=== PATIENT | female | born 1960 | race Caucasian/White ===

== ENCOUNTER → 2018-07-15 10:57 | Outpatient (CLI) | payer OTHER, SELFPAY ==
[2018-07-15 11:27] LABS: Hemoglobin A1C% w Est Avg Glu 8.3 % (4.0-6.0)
[2018-07-15 11:49] LABS: Alanine Aminotransferase 48 IU/L (9-52); Albumin 4.5 g/dL (3.5-5.0); Albumin Globulin Ratio 1.5 (1.0-2.8); Alkaline Phosphatase 96 U/L (38-126); Aspartate Aminotransferase 38 IU/L (14-36); BUN Creatinine Ratio 28.3 (6-22); Bilirubin Total 0.5 mg/dL (0.2-1.3); Blood Urea Nitrogen 17 mg/dL (7-17); Calcium 9.3 mg/dL (8.4-10.2); Carbon Dioxide 26 mmol/L (22-32); Chloride 100 mmol/L (98-107); Cholesterol 206 mg/dL (140-199); Estimated Glomerular Filt Rate > 60.0 mL/min (>60); Glucose 291 mg/dL (70-100); HDL Cholesterol 48 mg/dL (40-60); HEMOLYSIS 17 (0-50); LDL Cholesterol Calculated 105 mg/dL (<100); Potassium 4.9 mmol/L (3.4-5.1); Sodium 139 mmol/L (137-145); Total Protein 7.5 g/dL (6.3-8.2); Triglycerides 264 mg/dL (35-150)
== END ==
PROVIDERS: Family Provider Internal Medicine; PCP Internal Medicine; Visit Provider Internal Medicine
DX: E11.9 Type 2 diabetes mellitus without complications (principal); G60.9 Hereditary and idiopathic neuropathy, unspecified; G62.9 Polyneuropathy, unspecified; R07.9 Chest pain, unspecified
CPT/HCPCS: 36415; 80053; 80061; 83036

== ENCOUNTER → 2019-03-17 11:40 | Outpatient (CLI) | payer OTHER, SELFPAY ==
[2019-03-17 12:16] LABS: Hemoglobin A1C% w Est Avg Glu 8.2 % (4.0-6.0)
[2019-03-17 12:20] LABS: BUN Creatinine Ratio 28.6 (6-22); Blood Urea Nitrogen 20 mg/dL (7-17); Calcium 9.1 mg/dL (8.4-10.2); Carbon Dioxide 29 mmol/L (22-32); Chloride 102 mmol/L (98-107); Estimated Glomerular Filt Rate > 60.0 mL/min (>60); Glucose 237 mg/dL (70-100); HEMOLYSIS < 15 (0-50); Potassium 5.2 mmol/L (3.4-5.1); Sodium 140 mmol/L (137-145)
== END ==
PROVIDERS: PCP Internal Medicine; Visit Provider Internal Medicine
DX: E11.9 Type 2 diabetes mellitus without complications (principal); I10 Essential (primary) hypertension
CPT/HCPCS: 36415; 80048; 83036

== ENCOUNTER → 2019-07-06 15:16 | Outpatient (CLI) | payer OTHER, SELFPAY ==
[2019-07-06 15:48] LABS: Hemoglobin A1C% w Est Avg Glu 8.1 % (4.0-6.0)
[2019-07-06 15:50] LABS: BUN Creatinine Ratio 22.9 (6-22); Blood Urea Nitrogen 16 mg/dL (7-17); Calcium 10.5 mg/dL (8.4-10.2); Carbon Dioxide 30 mmol/L (22-32); Chloride 101 mmol/L (98-107); Estimated Glomerular Filt Rate > 60.0 mL/min (>60); Glucose 166 mg/dL (70-100); HEMOLYSIS < 15 (0-50); Potassium 4.9 mmol/L (3.4-5.1); Sodium 142 mmol/L (137-145)
== END ==
PROVIDERS: PCP Internal Medicine; Referring Provider Internal Medicine; Visit Provider Internal Medicine
DX: E11.9 Type 2 diabetes mellitus without complications (principal); I10 Essential (primary) hypertension
CPT/HCPCS: 36415; 80048; 83036

== ENCOUNTER → 2019-10-26 08:41 | Outpatient (CLI) | payer OTHER, SELFPAY ==
[2019-10-26 09:39] LABS: Hemoglobin A1C% w Est Avg Glu 9.1 % (4.0-6.0)
[2019-10-26 09:42] LABS: Alanine Aminotransferase 26 IU/L (<35); Albumin 3.9 g/dL (3.5-5.0); Albumin Globulin Ratio 1.4 (1.0-2.8); Alkaline Phosphatase 69 U/L (38-126); Aspartate Aminotransferase 27 IU/L (14-36); BUN Creatinine Ratio 20.6 (6-22); Bilirubin Total 0.6 mg/dL (0.2-1.3); Blood Urea Nitrogen 13 mg/dL (7-17); Calcium 8.9 mg/dL (8.4-10.2); Carbon Dioxide 29 mmol/L (22-32); Chloride 101 mmol/L (98-107); Cholesterol 152 mg/dL (140-199); Estimated Glomerular Filt Rate > 60.0 mL/min (>60); Globulin 2.7 g/dL (1.7-4.1); Glucose 276 mg/dL (70-100); HDL Cholesterol 39 mg/dL (40-60); HEMOLYSIS < 15 (0-50); LDL Cholesterol Calculated 84 mg/dL (<100); Potassium 4.4 mmol/L (3.4-5.1); Sodium 138 mmol/L (137-145); Total Protein 6.6 g/dL (6.3-8.2); Triglycerides 144 mg/dL (35-150)
== END ==
PROVIDERS: PCP Internal Medicine; Referring Provider Internal Medicine; Visit Provider Internal Medicine
DX: E11.65 Type 2 diabetes mellitus with hyperglycemia (principal); G60.9 Hereditary and idiopathic neuropathy, unspecified; I10 Essential (primary) hypertension
CPT/HCPCS: 36415; 80053; 80061; 83036

== ENCOUNTER → 2020-04-08 10:56 | Outpatient (CLI) | payer OTHER, SELFPAY ==
[2020-04-08 11:27] LABS: COVID19 -Nasal RAPID Negative (Negative)
== END ==
PROVIDERS: PCP Internal Medicine; Visit Provider Registered Nurse Diabetes Educator
DX: J34.89 Other specified disorders of nose and nasal sinuses (principal); R05 Cough; Z11.8 Encounter for screening for other infectious and parasitic diseases
CPT/HCPCS: 87635

== ENCOUNTER → 2020-04-08 11:06 | Outpatient (CLI) | payer OTHER, SELFPAY ==
[2020-04-08 12:34] LABS: Hemoglobin A1C% w Est Avg Glu 7.6 % (4.0-6.0)
[2020-04-08 13:05] LABS: BUN Creatinine Ratio 24.3 (6-22); Blood Urea Nitrogen 17 mg/dL (7-17); Calcium 9.2 mg/dL (8.4-10.2); Carbon Dioxide 32 mmol/L (22-32); Chloride 99 mmol/L (98-107); Estimated Glomerular Filt Rate > 60.0 mL/min (>60); Glucose 203 mg/dL (70-100); HEMOLYSIS < 15 (0-50); Potassium 4.2 mmol/L (3.4-5.1); Sodium 138 mmol/L (137-145)
== END ==
PROVIDERS: PCP Internal Medicine; Referring Provider Internal Medicine; Visit Provider Internal Medicine
DX: E11.65 Type 2 diabetes mellitus with hyperglycemia (principal); I10 Essential (primary) hypertension; J34.89 Other specified disorders of nose and nasal sinuses; R05 Cough; Z11.8 Encounter for screening for other infectious and parasitic diseases
CPT/HCPCS: 36415; 80048; 83036; 87635

== ENCOUNTER → 2020-07-11 06:59 | Outpatient (CLI) | payer OTHER, SELFPAY ==
[2020-07-11 08:33] LABS: Hemoglobin A1C% w Est Avg Glu 7.8 % (4.0-6.0)
[2020-07-11 08:47] LABS: BUN Creatinine Ratio 25.4 (6-22); Blood Urea Nitrogen 16 mg/dL (7-17); Calcium 9.1 mg/dL (8.4-10.2); Carbon Dioxide 30 mmol/L (22-32); Chloride 104 mmol/L (98-107); Estimated Glomerular Filt Rate > 60.0 mL/min (>60); Glucose 235 mg/dL (70-100); HEMOLYSIS < 15 (0-50); Potassium 4.8 mmol/L (3.4-5.1); Sodium 140 mmol/L (137-145)
== END ==
PROVIDERS: PCP Internal Medicine; Referring Provider Internal Medicine; Visit Provider Internal Medicine
DX: E11.65 Type 2 diabetes mellitus with hyperglycemia (principal); I10 Essential (primary) hypertension
CPT/HCPCS: 36415; 80048; 83036

== ENCOUNTER → 2020-10-02 06:52 | Outpatient (CLI) | payer OTHER, SELFPAY ==
[2020-10-02 08:10] LABS: BUN Creatinine Ratio 15.4 (6-22); Blood Urea Nitrogen 12 mg/dL (7-17); Carbon Dioxide 29 mmol/L (22-32); Chloride 104 mmol/L (98-107); Estimated Glomerular Filt Rate > 60.0 mL/min (>60); Glucose 122 mg/dL (70-100); HEMOLYSIS < 15 (0-50); Hemoglobin A1C% w Est Avg Glu 5.8 % (4.0-6.0); Sodium 141 mmol/L (137-145)
== END ==
PROVIDERS: PCP Internal Medicine; Referring Provider Internal Medicine; Visit Provider Internal Medicine
DX: E11.65 Type 2 diabetes mellitus with hyperglycemia (principal); I10 Essential (primary) hypertension
CPT/HCPCS: 36415; 80048; 83036

== ENCOUNTER → 2021-07-16 07:34 | Outpatient (CLI) | payer OTHER, SELFPAY ==
[2021-07-16 09:41] LABS: Alanine Aminotransferase 23 IU/L (<35); Albumin 4.2 g/dL (3.5-5.0); Albumin Globulin Ratio 1.5 (1.0-2.8); Alkaline Phosphatase 63 U/L (38-126); Aspartate Aminotransferase 28 IU/L (14-36); BUN Creatinine Ratio 21.2 (6-22); Bilirubin Total 0.6 mg/dL (0.2-1.3); Blood Urea Nitrogen 14 mg/dL (7-17); Calcium 9.3 mg/dL (8.4-10.2); Carbon Dioxide 31 mmol/L (22-32); Chloride 103 mmol/L (98-107); Cholesterol 154 mg/dL (140-199); Estimated Glomerular Filt Rate > 60.0 mL/min (>60); Globulin 2.8 g/dL (1.7-4.1); Glucose 224 mg/dL (70-100); HDL Cholesterol 34 mg/dL (40-60); HEMOLYSIS < 15 (0-50); LDL Cholesterol Calculated 68 mg/dL (<100); Potassium 4.5 mmol/L (3.4-5.1); Sodium 140 mmol/L (137-145); Triglycerides 259 mg/dL (35-150)
[2021-07-16 09:53] LABS: Hemoglobin A1C% w Est Avg Glu 8.3 % (4.0-6.0)
--- NOTE | 2021-07-21 | DI.RAD.S_ITS ---
PROCEDURE: XR LUMBAR SPINE 2-3V INDICATIONS: BACK PAIN TECHNIQUE: 3 views of the lumbar spine were acquired. COMPARISON: None. FINDINGS: Bones: 5 [id number] vertebrae are present. Expected appearance of posterior lateral naz and pedicle screw fixation of L3 through L5, with pedicle screws present bilaterally at these levels. Interbody disc prostheses are noted at L4-L5 and L5-S1. Grade 1 anterolisthesis of L4 on L5 measures 10 mm. The other vertebral bodies are normally aligned. No compression fractures. Soft tissues: Overlying bowel gas pattern is normal. No suspicious soft tissue calcifications. IMPRESSION: Expected appearance of orthopedic fusion hardware. No acute bony abnormality of the lumbar spine. Dictated by: Richard Flores M.D. on 07/21/2021 at 16:40 Approved by: Richard Flores M.D. on 07/21/2021 at 16:41
== END ==
PROVIDERS: PCP Internal Medicine; Referring Provider Internal Medicine; Visit Provider Internal Medicine
DX: E11.65 Type 2 diabetes mellitus with hyperglycemia (principal); I10 Essential (primary) hypertension; K21.9 Gastro-esophageal reflux disease without esophagitis
CPT/HCPCS: 36415; 80053; 80061; 83036

== ENCOUNTER → 2022-02-18 07:38 | Outpatient (CLI) | payer OTHER, SELFPAY ==
[2022-02-18 09:30] LABS: Hemoglobin A1C% w Est Avg Glu 8.2 % (4.0-6.0)
[2022-02-18 10:23] LABS: BUN Creatinine Ratio 19.7 (6-22); Blood Urea Nitrogen 14 mg/dL (7-17); Calcium 8.5 mg/dL (8.4-10.2); Carbon Dioxide 29 mmol/L (22-32); Chloride 100 mmol/L (98-107); Estimated Glomerular Filt Rate > 60 mL/min (>60); Glucose 276 mg/dL (80-110); HEMOLYSIS < 15 (0-50); Potassium 4.3 mmol/L (3.4-5.1); Sodium 139 mmol/L (137-145)
== END ==
PROVIDERS: PCP Internal Medicine; Referring Provider Internal Medicine; Visit Provider Internal Medicine
DX: E11.65 Type 2 diabetes mellitus with hyperglycemia (principal); I10 Essential (primary) hypertension
CPT/HCPCS: 36415; 80048; 83036

== ENCOUNTER → 2022-09-23 07:11 | Outpatient (CLI) | payer OTHER, SELFPAY ==
[2022-09-23 09:16] LABS: BUN Creatinine Ratio 22.5 (6-22); Blood Urea Nitrogen 16 mg/dL (7-17); Calcium 7.9 mg/dL (8.4-10.2); Carbon Dioxide 28 mmol/L (22-32); Chloride 102 mmol/L (98-107); Estimated Glomerular Filt Rate > 60 mL/min (>60); Glucose 243 mg/dL (80-110); HEMOLYSIS < 15 (0-50); Potassium 4.1 mmol/L (3.4-5.1); Sodium 138 mmol/L (137-145)
[2022-09-24 05:14] LABS: x Labcorp Estim. Avg Glu (eAG) 214 mg/dL (.); x Labcorp Hemoglobin A1c 9.1 % (4.8-5.6)
== END ==
PROVIDERS: PCP Internal Medicine; Referring Provider Internal Medicine; Visit Provider Internal Medicine
DX: I10 Essential (primary) hypertension (principal); E11.65 Type 2 diabetes mellitus with hyperglycemia
CPT/HCPCS: 36415; 80048; 83036

== ENCOUNTER → 2023-05-05 09:24 | Outpatient (CLI) | payer OTHER, SELFPAY ==
[2023-05-05 10:04] LABS: Hemoglobin A1C% w Est Avg Glu 9.6 % (4.0-6.0)
[2023-05-05 10:16] LABS: Alanine Aminotransferase 21 IU/L (<35); Albumin 3.7 g/dL (3.5-5.0); Albumin Globulin Ratio 1.2 (1.0-2.8); Alkaline Phosphatase 100 U/L (38-126); Aspartate Aminotransferase 24 IU/L (14-36); BUN Creatinine Ratio 19.1 (6-22); Bilirubin Total 0.8 mg/dL (0.2-1.3); Blood Urea Nitrogen 13 mg/dL (7-17); Calcium 9.2 mg/dL (8.4-10.2); Carbon Dioxide 30 mmol/L (22-32); Chloride 100 mmol/L (98-107); Cholesterol 203 mg/dL (140-199); Estimated Glomerular Filt Rate > 60 mL/min (>60); Globulin 3.1 g/dL (1.7-4.1); Glucose 336 mg/dL (80-110); HDL Cholesterol 45 mg/dL (40-60); HEMOLYSIS < 15 (0-50); LDL Cholesterol Calculated 97 mg/dL (<100); Potassium 4.6 mmol/L (3.4-5.1); Sodium 136 mmol/L (137-145); Total Protein 6.8 g/dL (6.3-8.2); Triglycerides 305 mg/dL (35-150)
== END ==
PROVIDERS: PCP Internal Medicine; Referring Provider Internal Medicine; Visit Provider Internal Medicine
DX: E11.65 Type 2 diabetes mellitus with hyperglycemia (principal); I10 Essential (primary) hypertension
CPT/HCPCS: 36415; 80053; 80061; 83036

== ENCOUNTER → 2023-08-05 08:49 | Outpatient (CLI) | payer OTHER, SELFPAY ==
[2023-08-05 09:35] LABS: Influenza A - CEPHEID Flu A NEGATIVE (NEGATIVE); Influenza B - CEPHEID Flu B NEGATIVE (NEGATIVE); Respiratory Syncytial Virus Negative (Negative)
[2023-08-05 11:10] LABS: COVID-19 CEPHEID 4-PLEX PCR Negative (Negative)
== END ==
PROVIDERS: PCP Internal Medicine; Visit Provider Physician Assistant Surgical
DX: R05.9 Cough, unspecified (principal)
CPT/HCPCS: 0241U

== ENCOUNTER → 2023-10-14 09:32 | Outpatient (CLI) | payer OTHER, SELFPAY ==
[2023-10-14 10:46] LABS: BUN Creatinine Ratio 23.2 (6-22); Blood Urea Nitrogen 19 mg/dL (7-17); Calcium 8.2 mg/dL (8.4-10.2); Carbon Dioxide 25 mmol/L (22-32); Chloride 107 mmol/L (98-107); Estimated Glomerular Filt Rate > 60 mL/min (>60); Glucose 219 mg/dL (80-110); HEMOLYSIS < 15 (0-50); Potassium 4.6 mmol/L (3.4-5.1); Sodium 140 mmol/L (137-145)
[2023-10-14 10:51] LABS: Hemoglobin A1C% w Est Avg Glu 9.5 % (4.0-6.0)
== END ==
PROVIDERS: PCP Internal Medicine; Referring Provider Internal Medicine; Visit Provider Internal Medicine
DX: E11.65 Type 2 diabetes mellitus with hyperglycemia (principal)
CPT/HCPCS: 36415; 80048; 83036

== ENCOUNTER → 2024-09-25 10:59 | Outpatient (CLI) | payer OTHER, SELFPAY ==
--- NOTE | 2024-09-25 11:02 | DI.RAD.S_ITS ---
PROCEDURE: XR FOOT RT MIN 3V INDICATIONS: foot infection TECHNIQUE: 3 views of the foot were acquired. COMPARISON: None. FINDINGS: Bones: No fractures or dislocations. No suspicious bony lesions. Distal fibular and medial malleolar fixation. Soft tissues: No tibiotalar joint effusion. Achilles tendon appears normal. Plantar surface soft tissue lucencies are present. IMPRESSION: Soft tissue lucencies suggestive of infection. No underlying osseous abnormalities. Dictated by: Jessica Vargas M.D. on 09/25/2024 at 11:51 Approved by: Jessica Vargas M.D. on 09/25/2024 at 11:53
[2024-09-25 12:16] LABS: Add Manual Diff / Slide Review NO; Basophils Absolute Auto 0 /uL (0-100); Basophils Percent Auto 0.2 % (0-2); Eosinophils Absolute Auto 0 /uL (0-450); Hemoglobin 13.7 g/dL (12.0-16.0); Lymphocytes Absolute Auto 800 /uL (1100-4500); Lymphocytes Percent Auto 4.5 % (25-40); Mean Corpuscular HGB Conc 34.3 % (30-36); Mean Corpuscular Hemoglobin 31.8 PG (26-34); Mean Corpuscular Volume 92.6 fL (80-100); Monocytes Absolute Auto 600 /uL (0-900); Monocytes Percent Auto 3.6 % (3-14); Neutrophils Absolute Auto 16300 /uL (1500-7000); Neutrophils Percent Auto 91.7 % (50-75); Platelet Count 247 X10^3/uL (150-400); Red Blood Cell Count 4.32 X10^6/uL (4.0-5.2); Red Cell Distribution Width 13.7 % (11.6-14.8); White Blood Cell Count 17.8 X10^3/uL (4.5-11.0)
[2024-09-25 12:32] LABS: Erythrocyte Sedimentation Rate 45 MM/HR (0-20)
[2024-09-25 12:46] LABS: Alanine Aminotransferase 22 IU/L (<35); Albumin 3.7 g/dL (3.5-5.0); Alkaline Phosphatase 75 U/L (38-126); Aspartate Aminotransferase 28 IU/L (14-36); BUN Creatinine Ratio 21.7 (6-22); Bilirubin Total 1.4 mg/dL (0.2-1.3); Blood Urea Nitrogen 39 mg/dL (7-17); Carbon Dioxide 20 mmol/L (22-32); Chloride 96 mmol/L (98-107); Estimated Glomerular Filt Rate 31 mL/min (>60); Globulin 3.6 g/dL (1.7-4.1); Glucose 288 mg/dL (70-99); HEMOLYSIS 22 (0-50); Potassium 4.5 mmol/L (3.4-5.1); Sodium 135 mmol/L (137-145); Total Protein 7.3 g/dL (6.3-8.2)
== END ==
PROVIDERS: PCP Internal Medicine; Referring Provider Internal Medicine; Visit Provider Internal Medicine
DX: L08.9 Local infection of the skin and subcutaneous tissue, unspecified (principal); E11.65 Type 2 diabetes mellitus with hyperglycemia; I10 Essential (primary) hypertension
CPT/HCPCS: 36415; 73630; 80053; 83036; 85025; 85651; 87040

== ENCOUNTER → 2024-10-05 10:00 | Outpatient (CLI) | payer OTHER, SELFPAY | PROVIDERS: Family Provider Internal Medicine; PCP Internal Medicine; Referring Provider Internal Medicine; Visit Provider Physician Assistant | DX: E11.621 Type 2 diabetes mellitus with foot ulcer (principal); E11.42 Type 2 diabetes mellitus with diabetic polyneuropathy; L97.512 Non-pressure chronic ulcer of other part of right foot with fat layer exposed; G62.9 Polyneuropathy, unspecified; R60.0 Localized edema; L53.9 Erythematous condition, unspecified; K21.9 Gastro-esophageal reflux disease without esophagitis; I10 Essential (primary) hypertension | CPT/HCPCS: 99204; 99214 ==

== ENCOUNTER 2024-10-05 10:46 | Inpatient (IN) | payer OTHER, SELFPAY ==
[2024-10-05] VITALS (12 sets, daily range): BP systolic 157–196; BP diastolic 75–89; PULSE 85–108; RESP 14–23; TEMP 36.5–37.4; O2SAT 99–100; BMI 31.1
--- NOTE | 2024-10-05 | DI.US.S_ITS ---
PROCEDURE: US KINJAL LIMITED SINGLE LEVEL INDICATIONS: DIABETIC FOOT ULCER TECHNIQUE: 1) Real time scanning was performed of the posterior tibial artery and dorsalis pedis, with image documentation and spectral Doppler. 2) Ankle-brachial indices were obtained bilaterally and recorded. COMPARISON: None. FINDINGS: The right posterior tibial artery has a velocity of 131 centimeters/second, monophasic waveform. The right dorsalis pedis artery has a velocity of 150 centimeter/second, monophasic waveform. The left posterior tibial artery has a velocity of 47 centimeters/second, with biphasic waveform. The left dorsalis pedis artery has a velocity 103 centimeter/second, with biphasic waveform. Right brachial artery blood pressure cannot be obtained due to an IV. Left brachial blood pressure measures 174/77. The right ankle brachial index measures 1.2. The left ankle brachial index measures 1.2. IMPRESSION: The right brachial index measures 1.2, however still likely abnormal in the presence of elevated velocities in the dorsalis pedis and posterior tibial arteries. The left brachial index measures 1.2, normal. Elevated blood pressure at 174/77. Monophasic waveforms and elevated velocities in the right posterior tibial artery and dorsalis pedis artery, likely indicating hemodynamically significant stenosis as well as upstream stenosis. Dictated by: Jason Baer M.D. on 10/05/2024 at 18:32 Approved by: Jason Baer M.D. on 10/05/2024 at 18:35
--- NOTE | 2024-10-05 11:10 | DI.RAD.S_ITS ---
PROCEDURE: XR FOOT RT MIN 3V INDICATIONS: wound TECHNIQUE: 3 views of the foot were acquired. COMPARISON: [facility], CR, XR FOOT RT MIN 3V, 09/25/2024, 10:14. FINDINGS/IMPRESSION: Increased soft tissue swelling with associated subcutaneous gas in the distal medial midfoot and forefoot. No bony erosion. Findings consistent with a gas-forming bacteria infection. Dictated by: Jason Baer M.D. on 10/05/2024 at 12:10 Approved by: Jason Baer M.D. on 10/05/2024 at 12:13
--- NOTE | 2024-10-05 11:33 | EKG_ITS ---
[address] [address] Test Date: 2024-10-05 Pat Name: Eliza Rico Department: Room: Gender: Female Accounts Payable Associate: HONG : 1960 Requested By: Order Number: [id number] Reading MD: Vito Newton MD Measurements Intervals [place] Rate: 107 P: 49 WA: 132 QRS: -21 QRSD: 94 T: 88 QT: 364 QTc: 485 Interpretive Statements Sinus tachycardia Left ventricular hypertrophy with repolarization abnormality ( Agustin product ) Electronically Signed On 10-05-2024 11:51:22 PDT by Vito Newton MD
--- NOTE | 2024-10-05 11:39 | ED.WOUNDLAC ---
HPI - Wound/Laceration General Chief Complaint: Wound/Laceration Stated Complaint: Right foot wound check for gangrene Time Seen by Provider: 10/05/24 11:39 Source: patient, RN notes reviewed and old records reviewed Mode of arrival: Ambulatory Limitations: no limitations History of Present Illness HPI narrative: 63-year-old female history of diabetes, hypertension, peripheral neuropathy, GERD presents with complaint of wound to the left foot that is been following with Wound Care concerns for worsening infection. Patient states she 1st noticed it September 25. States she went to primary care was started on doxycycline was referred to wound care and saw them for the 1st time today and was sent to the emergency department. She has black discoloration of her great toe with a large wound over the dorsum of the foot. She states she thinks it might actually be a little bit smaller. Discussed with the black discoloration was 1st noticed and she states around the 25 of September when she 1st noticed the wound. She denies fevers, no chest pain or shortness of breath. She was had nausea and decreased appetite. No vomiting. She was had some diarrhea but no other issues with bowel movements. She denies any other prior history of skin infections or osteomyelitis. Patient states she takes oral medication for diabetes and hypertension. Remote history of ankle fracture 12 years ago. No known drug allergies. Quit tobacco about 10 years ago, quit alcohol about a week ago. No recreational drugs. Dr. Newton is her primary care physician. Related Data Home Medications Medication Instructions Recorded Confirmed fluticasone propionate 50 2 spray intranasal DAILY PRN 07/11/20 09/25/24 mcg/actuation nasal spray,suspension Previous Rx's Medication Instructions Recorded blood-glucose sensor (Dexcom G6 #3 06/03/23 Sensor device) blood-glucose transmitter (Dexcom #1 ea 06/03/23 G6 Transmitter device) blood-glucose,fish receiver,cont #1 ea 06/03/23 (Dexcom G6 Marketing Research Coordinator) glipizide 10 mg tablet 10 mg PO BID #180 tabs 10/14/23 lisinopril 40 mg tablet 40 mg PO DAILY #90 tabs 10/14/23 metformin 1,000 mg tablet 1,000 mg PO BIDCC #180 tabs 10/14/23 nortriptyline 25 mg capsule 25 mg PO BEDTIME #90 caps 10/14/23 gabapentin 300 mg capsule 600 mg (2 x 300 mg) PO BEDTIME 10/07/24 #180 caps omeprazole 40 mg capsule,delayed 40 mg PO QAM #90 caps 02/27/24 release doxycycline hyclate 100 mg capsule 100 mg PO BID #28 caps 09/25/24 Allergies Allergy/AdvReac Type Severity Reaction Status Date / Time No Known Drug Allergies Allergy Verified 10/05/24 10:58 Review of Systems Review of Systems ROS Unobtainable: All systems reviewed & are unremarkable except as noted in HPI and below Patient History Medical History Type 2 diabetes mellitus with hyperglycemia Hypertension, essential Idiopathic peripheral neuropathy (11/02/13) Obesity (11/02/13) GERD (gastroesophageal reflux disease) Diabetes type 2, controlled Family History Father Family hx of colon cancer Mother Family history of breast cancer Social History Smoking Status: Former smoker Smoking Status: Former smoker Exam Narrative Exam Narrative: GENERAL: Alert and oriented x three, female in mild distress HEENT: Head normocephalic, atraumatic, EOMI, pupils reactive, face symmetric, moist mucous membranes NECK: Supple, full range of motion CARDIOVASCULAR: Slightly tachycardic but regular rhythm without murmurs, rubs or gallops. No JVD. No edema bilateral lower extremities. RESPIRATORY: Breath sounds equal bilaterally, no wheezes rales or rhonchi. ABDOMEN: Soft, nontender. Normoactive bowel sounds all 4 quadrants. No guarding or rebound, rigidity, no mass : No CVA tenderness EXTREMITIES: Normal range of motion, patient has necrosis of the entire great toe of her right foot there is a large wound 3-4cm down to the subcutaneous tissue extending over the dorsum of the foot proximally, appears to be circumferential on the plantar side of the foot as well. There is foul odor and discharge. Culture was obtained and sent. Neurovascularly intact. There is sparing of toes 3 4 and 5, the 2nd toe has a some involvement with the I suppose subcutaneous tissue but no necrosis. NEUROLOGICAL: Cranial nerves II through XII grossly intact. Moving all extremities SKIN: Warm, dry, no petechiae. Initial Vital Signs Initial Vital Signs: Vital Signs Temperature 99.4 F 10/05/24 10:58 Pulse Rate 108 H 10/05/24 10:58 Respiratory Rate 19 10/05/24 10:58 Blood Pressure 168/81 H 10/05/24 10:58 Pulse Oximetry 100 10/05/24 10:58 Oxygen Delivery Method Room Air 10/05/24 10:58 Course Orders Ordered: ED Orders 10/05/24 11:09 EKG-12 Lead Stat RT Consult Eval and Treat NOW 10/05/24 11:10 XR foot RT min 3V Stat 10/05/24 11:35 CRP [C-Reactive Protein Quant] Stat Complete Blood Count AUTO DIFF Stat Comprehensive Metabolic Panel Stat ESR [Erythrocyte Sedimentation Rate] Stat Lactate (Lactic Acid) Stat Lipase Stat PTT Partial Thromboplastin Beau Stat Procalcitonin Stat Prothrombin Time INR Stat 10/05/24 11:43 Blood Culture Stat 10/05/24 12:05 Wound Culture and Gram Stain Stat 10/05/24 12:59 Consult to Orthopedic Surgery Stat Discontinued Medications Sodium Chloride (Normal Saline 0.9%) 1,000 mls @ 1,000 mls/hr IV BOLUS ONE Stop: 10/05/24 12:08 Last Infusion: 10/05/24 13:04 Dose: Infused Documented By: Admin: 10/05/24 11:44 Dose: 1,000 mls/hr Documented By: REDD Cefepime HCl 2 gm/ Sodium (Chloride) 100 mls @ 200 mls/hr IV NOW ONE Stop: 10/05/24 12:06 Last Infusion: 10/05/24 13:04 Dose: Infused Documented By: Admin: 10/05/24 12:22 Dose: 200 mls/hr Documented By: DANIKA Vancomycin HCl/Dextrose (Vancomycin) 1,500 mg in 300 mls @ 200 mls/hr IV NOW ONE Stop: 10/05/24 13:34 Clindamycin Phosphate (Cleocin) 900 mg in 50 mls @ 50 mls/hr IV NOW ONE Stop: 10/05/24 13:19 Last Admin: 10/05/24 13:05 Dose: 50 mls/hr Documented By: DANIKA Ondansetron HCl (Ondansetron 4 Mg/2 Ml Inj) 4 mg IV NOW PRN PRN Reason: Nausea And Vomiting Ondansetron HCl (Ondansetron 4 Mg Odt) 4 mg PO NOW PRN PRN Reason: Nausea And Vomiting Vital Signs Vital signs: Vital Signs - 8 hr 10/05/24 10:58 10/05/24 11:27 10/05/24 11:27 Temperature 99.4 F Pulse Rate 108 H 106 H Respiratory Rate 19 Blood Pressure 168/81 H 160/76 H Pulse Oximetry 100 100 Oxygen Delivery Method Room Air 10/05/24 11:30 10/05/24 11:30 10/05/24 12:00 Temperature Pulse Rate 106 H Respiratory Rate Blood Pressure 162/83 H 178/84 H Pulse Oximetry 100 Oxygen Delivery Method 10/05/24 12:00 Temperature Pulse Rate 100 H Respiratory Rate 20 Blood Pressure Pulse Oximetry 100 Oxygen Delivery Method MDM - Wound/Laceration Lab Data 10/05/24 11:35 10/05/24 11:35 Labs: Lab Results 10/05/24 Range/Units 11:35 WBC 12.6 H (4.5-11.0) X10^3/uL RBC 4.00 (4.0-5.2) X10^6/uL Hgb 12.4 (12.0-16.0) g/dL Hct 36.4 (36-46) % MCV 90.9 (80-100) fL MCH 31.0 (26-34) PG MCHC 34.2 (30-36) % RDW 13.6 (11.6-14.8) % Plt Count 499 H (150-400) X10^3/uL Neut % (Auto) 82.6 H (50-75) % Lymph % (Auto) 11.6 L (25-40) % Dane % (Auto) 5.0 (3-14) % Eos % (Auto) 0.3 L (2-4) % Baso % (Auto) 0.5 (0-2) % Neut # (Auto) 83094 H (6320-2678) /uL Lymph # (Auto) 1500 (5879-3885) /uL Dane # (Auto) 600 (0-900) /uL Eos # (Auto) 0 (0-450) /uL Baso # (Auto) 100 (0-100) /uL ESR 90 H (0-20) MM/HR PT 15.3 H (9.4-12.5) SECONDS INR 1.4 H (0.9-1.3) APTT 34 (25.1-36.5) SECONDS Sodium 134 L (137-145) mmol/L Potassium 4.1 (3.4-5.1) mmol/L Chloride 102 (98-107) mmol/L Carbon Dioxide 18 L (22-32) mmol/L BUN 17 (7-17) mg/dL Creatinine 1.27 H (0.52-1.04) mg/dL Estimated GFR 48 L (>60) mL/min BUN/Creatinine Ratio 13.4 (6-22) Glucose 200 H (70-99) mg/dL Lactate 1.4 (0.7-2.1) mmol/L Calcium 7.8 L (8.4-10.2) mg/dL Total Bilirubin 0.8 (0.2-1.3) mg/dL AST 35 (14-36) IU/L ALT 37 H (<35) IU/L Alkaline Phosphatase 97 (38-126) U/L C-Reactive Protein 6.3 H (<1.0) mg/dL Total Protein 8.2 (6.3-8.2) g/dL Albumin 3.5 (3.5-5.0) g/dL Globulin 4.7 H (1.7-4.1) g/dL Albumin/Globulin Ratio 0.7 L (1.0-2.8) Lipase 94 (23-300) U/L Procalcitonin 0.452 (<0.5) ng/mL ECG Data Attestation: I personally reviewed and interpreted this ECG as follows: Prior ECG tracings: available for review Interpretation: Sinus tachycardia rate of 107 MS 132 QRS of 94 QTC of 45, left ventricular hypertrophy. Patient has prior which showed normal sinus rhythm from 01/02/2016. [facility] Narrative Medical decision making narrative: EKG shows sinus tachycardia Labs show white count of 12 hemoglobin of 0.4 platelets of 499. Creatinine is 1.27 improved from 09/25/2024 sodium is 134 CO2 is 18 with a glucose of 200 calcium 7.8 patient is ALT is 37 but AST and bilirubin are normal. Lipase is 94. Lactate is 1.4. Procalcitonin wound culture was sent. Blood cultures are pending. Foot x-ray of the right increased soft tissue swelling with associated subcu gas and distal medial midfoot and forefoot, no bony erosion. Findings consistent with a gas-forming bacterial infection. Patient is slightly tachycardic but not hypotensive so was given a 1L bolus but not 30 cc/kilos bolus. Was covered with cefepime and Rocephin for osteomyelitis with additional diabetic infected wound. Call the orthopedic surgeon, Dr. Garcia at 1230. Images of the wound as well as x-rays were reviewed with Dr Garcia. Plan for OR. Did review radiology's note about subcutaneous gas. Spoke with Dr. Newton 1342 accepts for inpatient. Discharge Plan Departure Patient Disposition: Admitted As Inpatient Clinical Impression: Osteomyelitis of foot, Diabetic infection of right foot Prescriptions: No Action (DME) Dexcom G6 Marketing Research Coordinator Misc See Rx Instructions .Route Qty: 1 0RF Rx Instructions: As directed (DME) Dexcom G6 Sensor Device See Rx Instructions .Route Qty: 3 0RF Rx Instructions: As directed (DME) Dexcom G6 Transmitter Device See Rx Instructions .Route Qty: 1 0RF Rx Instructions: As directed gabapentin 300 mg capsule 600 mg PO BEDTIME Qty: 180 0RF Rx Instructions: APPT OVERDUE FOR DM/LABS - PLEASE CALL TO SCHEDULE APPT. THANKS 02/27/24. omeprazole 40 mg capsule,delayed release(DR/EC) 40 mg PO QAM Qty: 90 0RF Rx Instructions: APPT OVERDUE FOR DM/LABS - PLEASE CALL TO SCHEDULE APPT. THANKS 02/27/24. lisinopril 40 mg tablet 40 mg PO DAILY Qty: 90 3RF glipizide 10 mg tablet 10 mg PO BID Qty: 180 1RF metformin 1,000 mg tablet 1,000 mg PO BIDCC Qty: 180 1RF nortriptyline 25 mg capsule 25 mg PO BEDTIME Qty: 90 1RF doxycycline hyclate 100 mg capsule 100 mg PO BID Qty: 28 1RF fluticasone propionate 50 mcg/actuation spray,suspension 2 spray Intranasal DAILY PRN Referrals: Vito Newton MD [Primary Care Provider] -
[2024-10-05] MEDS: SODIUM CHLORIDE 0.9% 1,000 ML 1000 ML IV (11:44)
[2024-10-05 11:54] LABS: Add Manual Diff / Slide Review NO; Basophils Absolute Auto 100 /uL (0-100); Basophils Percent Auto 0.5 % (0-2); Eosinophils Absolute Auto 0 /uL (0-450); Eosinophils Percent Auto 0.3 % (2-4); Hematocrit 36.4 % (36-46); Hemoglobin 12.4 g/dL (12.0-16.0); Lymphocytes Absolute Auto 1500 /uL (1100-4500); Lymphocytes Percent Auto 11.6 % (25-40); Mean Corpuscular HGB Conc 34.2 % (30-36); Mean Corpuscular Volume 90.9 fL (80-100); Monocytes Absolute Auto 600 /uL (0-900); Neutrophils Absolute Auto 10400 /uL (1500-7000); Neutrophils Percent Auto 82.6 % (50-75); Platelet Count 499 X10^3/uL (150-400); Red Cell Distribution Width 13.6 % (11.6-14.8); White Blood Cell Count 12.6 X10^3/uL (4.5-11.0)
[2024-10-05 12:02] LABS: INR 1.4 (0.9-1.3); Prothrombin Time 15.3 SECONDS (9.4-12.5)
[2024-10-05 12:04] LABS: PTT Partial Thromboplastin Tim 34 SECONDS (25.1-36.5)
[2024-10-05 12:07] LABS: Lactate (Lactic Acid) 1.4 mmol/L (0.7-2.1)
[2024-10-05 12:08] LABS: Alanine Aminotransferase 37 IU/L (<35); Albumin 3.5 g/dL (3.5-5.0); Albumin Globulin Ratio 0.7 (1.0-2.8); Alkaline Phosphatase 97 U/L (38-126); Aspartate Aminotransferase 35 IU/L (14-36); BUN Creatinine Ratio 13.4 (6-22); Bilirubin Total 0.8 mg/dL (0.2-1.3); Blood Urea Nitrogen 17 mg/dL (7-17); Calcium 7.8 mg/dL (8.4-10.2); Carbon Dioxide 18 mmol/L (22-32); Chloride 102 mmol/L (98-107); Estimated Glomerular Filt Rate 48 mL/min (>60); Globulin 4.7 g/dL (1.7-4.1); Glucose 200 mg/dL (70-99); HEMOLYSIS 18 (0-50); Lipase 94 U/L (23-300); Potassium 4.1 mmol/L (3.4-5.1); Sodium 134 mmol/L (137-145); Total Protein 8.2 g/dL (6.3-8.2)
[2024-10-05] MEDS: CEFEPIME 2 GM in SODIUM CHLORIDE 0.9% 100 ML IV (12:22)
[2024-10-05 12:23] LABS: Procalcitonin 0.452 ng/mL (<0.5)
[2024-10-05 12:27] LABS: C-Reactive Protein Quant 6.3 mg/dL (<1.0)
[2024-10-05 12:40] LABS: Erythrocyte Sedimentation Rate 90 MM/HR (0-20)
[2024-10-05] MEDS: CLINDAMYCIN 900 MG/50 ML PIGGYBACK 50 MG IV (13:05)
--- NOTE | 2024-10-05 13:48 | P.HP_ITS ---
History of Present Illness History of Present Illness Date Patient Seen: 10/05/24 Time Patient Seen: 13:48 Chief complaint: Right foot wound check for gangrene Narrative: 63-year-old female with longstanding diabetes admitted via emergency department for serious infection of right great toe She was seen in the clinic about 10 days ago on the 25 of September. She presented after not being seen for almost a year. She had described several days perhaps a week of increased swelling and pain in the great toe on the right side. She was says that is all started when she was in [place] and did a whole lot of walking and did not realize she was having some skin breakdown in her shoes etcetera. She was started on oral antibiotics and urgent referral was made to the wound care center She presented to the Wound Care Center today with increasing blackness of the toe extending into the distal foot. A whole bunch of the skin that is sloughed off several days ago apparently. Pain has been much better. She was sent to the ER where she was admitted for probable surgical intervention and continue parental antibiotics Patient's diabetes has been poorly controlled over time although her A1c done at that visit 10 days ago was much better than usual for her. [facility] Medical History Type 2 diabetes mellitus with hyperglycemia Hypertension, essential Idiopathic peripheral neuropathy (11/02/13) Obesity (11/02/13) GERD (gastroesophageal reflux disease) Diabetes type 2, controlled Family History Father Family hx of colon cancer Mother Family history of breast cancer Social History Smoking Status: Former smoker Meds Home Medications and Allergies Home Medications Medication Instructions Recorded Confirmed Type fluticasone propionate 50 2 spray intranasal DAILY PRN 07/11/20 09/25/24 History mcg/actuation nasal spray,suspension blood-glucose sensor (Dexcom G6 #3 ea 06/03/23 09/25/24 Rx Sensor device) blood-glucose transmitter (Dexcom #1 ea 06/03/23 09/25/24 Rx G6 Transmitter device) blood-glucose,board writer,cont #1 ea 06/03/23 09/25/24 Rx (Dexcom G6 Electrical Engineering Technologist) glipizide 10 mg tablet 10 mg PO BID #180 tabs 10/14/23 09/25/24 Rx lisinopril 40 mg tablet 40 mg PO DAILY #90 tabs 10/14/23 09/25/24 Rx metformin 1,000 mg tablet 1,000 mg PO BIDCC #180 tabs 10/14/23 09/25/24 Rx nortriptyline 25 mg capsule 25 mg PO BEDTIME #90 caps 10/14/23 09/25/24 Rx gabapentin 300 mg capsule 600 mg (2 x 300 mg) PO BEDTIME 02/27/24 09/25/24 Rx #180 caps omeprazole 40 mg capsule,delayed 40 mg PO QAM #90 caps 02/27/24 09/25/24 Rx release doxycycline hyclate 100 mg capsule 100 mg PO BID #28 caps 09/25/24 09/25/24 Rx Allergies Allergy/AdvReac Type Severity Reaction Status Date / Time No Known Drug Allergies Allergy Verified 10/05/24 10:58 Exam Vital Signs (past 8 hours): - 10/05/24 10:58 10/05/24 11:27 10/05/24 11:27 Temperature 99.4 F Pulse Rate 108 H 106 H Respiratory Rate 19 Blood Pressure 168/81 H 160/76 H Pulse Oximetry 100 100 Oxygen Delivery Method Room Air 10/05/24 11:30 10/05/24 11:30 10/05/24 12:00 Temperature Pulse Rate 106 H Respiratory Rate Blood Pressure 162/83 H 178/84 H Pulse Oximetry 100 Oxygen Delivery Method 10/05/24 12:00 Temperature Pulse Rate 100 H Respiratory Rate 20 Blood Pressure Pulse Oximetry 100 Oxygen Delivery Method Oxygen Delivery Method Room Air Narrative Exam Narrative: Middle-aged female in no obvious distress HEENT unremarkable Lungs-clear Heart-regular rate and rhythm Abdomen-benign Extremities-right foot show those blackened area of the great toe extending proximally to the distal third of the metatarsals and across the foot to the second and third metatarsal. 2nd and third toes are pink and normal in appearance Objective Labs 10/05/24 11:35 10/05/24 11:35 Labs: Laboratory Results - last 24 hr 10/05/24 11:35 WBC 12.6 H RBC 4.00 Hgb 12.4 Hct 36.4 MCV 90.9 MCH 31.0 MCHC 34.2 RDW 13.6 Plt Count 499 H Neut % (Auto) 82.6 H Lymph % (Auto) 11.6 L [place] % (Auto) 5.0 Eos % (Auto) 0.3 L Baso % (Auto) 0.5 Neut # (Auto) 73770 H Lymph # (Auto) 1500 [place] # (Auto) 600 Eos # (Auto) 0 Baso # (Auto) 100 ESR 90 H PT 15.3 H INR 1.4 H APTT 34 Sodium 134 L Potassium 4.1 Chloride 102 Carbon Dioxide 18 L BUN 17 Creatinine 1.27 H Estimated GFR 48 L BUN/Creatinine Ratio 13.4 Glucose 200 H Lactate 1.4 Calcium 7.8 L Total Bilirubin 0.8 AST 35 ALT 37 H Alkaline Phosphatase 97 C-Reactive Protein 6.3 H Total Protein 8.2 Albumin 3.5 Globulin 4.7 H Albumin/Globulin Ratio 0.7 L Lipase 94 Procalcitonin 0.452 Assessment & Plan Assessment & Plan narrative: 1. Severe infection right great toe and forefoot with possible gangrene. Clearly she was going to need a surgical intervention here for amputation and debridement. Unsure based on her exam today how much of the foot can be saved. Orthopedic surgery has been consulted by the emergency department. 2. Diabetes-will hold patient's oral meds and treat with insulin as necessary for this hospitalization. A1c done on September 25 was actually at 8.0 which is a significant improvement for patient. Will continue to monitor and continue with carb consistent diet etcetera. 3. Hypertension-continue patient's usual medications 4. VTE prophylaxis-as per Orthopedic surgery after her surgery 5. Code status-patient full code Time-Based Coding :: [TOTAL MINUTES] spent with patient and on the chart (including review of chart, obtaining history, exam, reviewing outside data, placing orders, documenting exam and treatment plan, and counseling patient) on [DATE]. PROFEE Gravel Inspector Document charge(s): Yes Charge Codes Initial inpatient/observation care: [id number]
[2024-10-05] MEDS: VANCOMYCIN 1,500 MG/300 ML PIGGYBACK 200 MG IV (13:55)
--- NOTE | 2024-10-05 16:36 | PM.CN.IH.1 ---
History of Present Illness Consult details Chief complaint: Right foot wound check for gangrene Narrative: CHIEF COMPLAINT - Severe infection and necrosis of the right hallux extending to adjacent toes HISTORY OF PRESENT ILLNESS Eliza Rico, a 63-year-old female with a history of diabetes, presented with a severe infection of the right hallux which she developed after walking around in [place] and not noticing a small wound on her foot. The infection is exacerbated by movement and partially alleviated by rest. It has been present since the time of injury and does not radiate. PERTINENT PAST MEDICAL HISTORY - Diabetes mellitus PERTINENT MEDICATIONS - Has already been taking oral medications in the outpatient setting IMAGING X-rays show subcutaneous air in the area of the open wound over the hallux. PHYSICAL EXAM Right foot: The infection has led to complete necrosis of the hallux, extending up into the MCP joint and across to the MCP joints of the second and third toes. There is diffuse erythema and skin sloughing in the affected area. ASSESSMENT 63-year-old female with severe necrotic infection of the right hallux and adjacent toes due to diabetic complications. PLAN I had a detailed discussion with the patient regarding her infected, necrotic foot. At this juncture the hallux is completely necrotic and will clearly require amputation. She has infection extending into the tissue overlying the 2nd and 3rd MTP joints with skin sloughing overlying those areas extending to the 4th MTP joint. If infection were to improve the site of amputation could potentially be confined to the hallux. Amputation of all effected tissue currently would likely necessitate at minimum a transmetatarsal amputation, which can have significant functional issues including equinovarus contractures which can necessitate tendo-achilles lengthening. An alternative would be a below knee amputation which the patient is understandably resistant to pursue. If the infected responds to antibiotics it might be feasible to limit the amputation to the hallux which would be much more functional. - Await further evaluation with MRI and ABIs to assess blood flow and tissue viability - Non-weightbearing through the foot. May weightbear through the heel - Disposition to be determined based on further evaluation. Potentially may discharge home for outpatient amputation Meds Home Medications and Allergies Home Medications Medication Instructions Recorded Confirmed Type fluticasone propionate 50 2 spray intranasal DAILY PRN 07/11/20 09/25/24 History mcg/actuation nasal spray,suspension blood-glucose sensor (Dexcom G6 #3 ea 06/03/23 09/25/24 Rx Sensor device) blood-glucose transmitter (Dexcom #1 ea 06/03/23 09/25/24 Rx G6 Transmitter device) blood-glucose,balance bridge assembler,cont #1 ea 06/03/23 09/25/24 Rx (Dexcom G6 Medical Office Clerk) glipizide 10 mg tablet 10 mg PO BID #180 tabs 10/14/23 09/25/24 Rx lisinopril 40 mg tablet 40 mg PO DAILY #90 tabs 10/14/23 09/25/24 Rx metformin 1,000 mg tablet 1,000 mg PO BIDCC #180 tabs 10/14/23 09/25/24 Rx nortriptyline 25 mg capsule 25 mg PO BEDTIME #90 caps 10/14/23 09/25/24 Rx gabapentin 300 mg capsule 600 mg (2 x 300 mg) PO BEDTIME 02/27/24 09/25/24 Rx #180 caps omeprazole 40 mg capsule,delayed 40 mg PO QAM #90 caps 02/27/24 09/25/24 Rx release doxycycline hyclate 100 mg capsule 100 mg PO BID #28 caps 09/25/24 09/25/24 Rx Allergies Allergy/AdvReac Type Severity Reaction Status Date / Time No Known Drug Allergies Allergy Verified 10/05/24 10:58 Exam Vital Signs (past 8 hours): - 10/05/24 10:58 10/05/24 11:27 10/05/24 11:27 Temperature 99.4 F Pulse Rate 108 H 106 H Respiratory Rate 19 Blood Pressure 168/81 H 160/76 H Pulse Oximetry 100 100 Oxygen Delivery Method Room Air 10/05/24 11:30 10/05/24 11:30 10/05/24 12:00 Temperature Pulse Rate 106 H Respiratory Rate Blood Pressure 162/83 H 178/84 H Pulse Oximetry 100 Oxygen Delivery Method 10/05/24 12:00 10/05/24 12:30 10/05/24 13:00 Temperature Pulse Rate 100 H 90 92 H Respiratory Rate 20 14 16 Blood Pressure Pulse Oximetry 100 100 100 Oxygen Delivery Method 10/05/24 13:00 10/05/24 13:00 10/05/24 13:30 Temperature Pulse Rate 85 Respiratory Rate 14 Blood Pressure 163/75 H 163/75 H Pulse Oximetry 99 Oxygen Delivery Method 10/05/24 13:30 10/05/24 14:00 10/05/24 14:01 Temperature Pulse Rate 97 H Respiratory Rate 18 Blood Pressure 175/82 H 196/89 H Pulse Oximetry 100 Oxygen Delivery Method 10/05/24 14:01 10/05/24 14:30 10/05/24 14:30 Temperature Pulse Rate 93 H 85 Respiratory Rate 20 23 Blood Pressure 161/76 H Pulse Oximetry 100 100 Oxygen Delivery Method Oxygen Delivery Method Room Air Objective Labs 10/05/24 11:35 10/05/24 11:35 Labs: Laboratory Results - last 24 hr 10/05/24 11:35 WBC 12.6 H RBC 4.00 Hgb 12.4 Hct 36.4 MCV 90.9 MCH 31.0 MCHC 34.2 RDW 13.6 Plt Count 499 H Neut % (Auto) 82.6 H Lymph % (Auto) 11.6 L Jay % (Auto) 5.0 Eos % (Auto) 0.3 L Baso % (Auto) 0.5 Neut # (Auto) 13112 H Lymph # (Auto) 1500 Jay # (Auto) 600 Eos # (Auto) 0 Baso # (Auto) 100 ESR 90 H PT 15.3 H INR 1.4 H APTT 34 Sodium 134 L Potassium 4.1 Chloride 102 Carbon Dioxide 18 L BUN 17 Creatinine 1.27 H Estimated GFR 48 L BUN/Creatinine Ratio 13.4 Glucose 200 H Lactate 1.4 Calcium 7.8 L Total Bilirubin 0.8 AST 35 ALT 37 H Alkaline Phosphatase 97 C-Reactive Protein 6.3 H Total Protein 8.2 Albumin 3.5 Globulin 4.7 H Albumin/Globulin Ratio 0.7 L Lipase 94 Procalcitonin 0.452 [facility]LY [facility], [facility] Medical History Type 2 diabetes mellitus with hyperglycemia Hypertension, essential Idiopathic peripheral neuropathy (11/02/13) Obesity (11/02/13) GERD (gastroesophageal reflux disease) Diabetes type 2, controlled Family History Father Family hx of colon cancer Mother Family history of breast cancer Tobacco & Substance Use Smoking Status: Former smoker Assessment & Plan Time-Based Coding :: [TOTAL MINUTES] spent with patient and on the chart (including review of chart, obtaining history, exam, reviewing outside data, placing orders, documenting exam and treatment plan, and counseling patient) on [DATE]. PROFEE Charge Codes Inpatient or Observation consultation: 01980
[2024-10-05] MEDS: HYDROMORPHONE 0.5 MG INJ IV (16:57)
[2024-10-05] MEDS: SODIUM CHLORIDE 0.9% 1,000 ML 100 ML IV (17:01)
[2024-10-05] MEDS: INSULIN LISPRO 100 UNIT/ML 3ML VIAL SUBCUT (17:35)
[2024-10-05] MEDS: CLINDAMYCIN 600 MG/50 ML PIGGYBACK 50 MG IV (19:54)
[2024-10-05] MEDS: GABAPENTIN 600 MG TABLET PO (20:23)
[2024-10-05] MEDS: NORTRIPTYLINE HCL 25 MG CAPSULE PO (20:23)
[2024-10-06] MEDS: CLINDAMYCIN 600 MG/50 ML PIGGYBACK 50 MG IV ×4 (01:50→20:20)
[2024-10-06 02:00] VITALS: BP 165/72; PULSE 85; RESP 16; TEMP 36.4; O2SAT 98
[2024-10-06] MEDS: SODIUM CHLORIDE 0.9% 1,000 ML 100 ML IV ×2 (05:04→16:39)
[2024-10-06 05:07] LABS: Add Manual Diff / Slide Review NO; Basophils Absolute Auto 0 /uL (0-100); Basophils Percent Auto 0.6 % (0-2); Eosinophils Absolute Auto 100 /uL (0-450); Eosinophils Percent Auto 0.9 % (2-4); Hematocrit 29.9 % (36-46); Hemoglobin 10.5 g/dL (12.0-16.0); Lymphocytes Absolute Auto 1300 /uL (1100-4500); Lymphocytes Percent Auto 18.2 % (25-40); Mean Corpuscular HGB Conc 35.1 % (30-36); Mean Corpuscular Hemoglobin 31.6 PG (26-34); Mean Corpuscular Volume 90.2 fL (80-100); Monocytes Absolute Auto 500 /uL (0-900); Monocytes Percent Auto 7.5 % (3-14); Neutrophils Absolute Auto 5100 /uL (1500-7000); Neutrophils Percent Auto 72.8 % (50-75); Platelet Count 323 X10^3/uL (150-400); Red Blood Cell Count 3.31 X10^6/uL (4.0-5.2); Red Cell Distribution Width 13.4 % (11.6-14.8)
[2024-10-06] MEDS: PANTOPRAZOLE DR 40 MG TABLET PO (05:07)
[2024-10-06 05:22] LABS: BUN Creatinine Ratio 15.8 (6-22); Blood Urea Nitrogen 16 mg/dL (7-17); Calcium 6.7 mg/dL (8.4-10.2); Carbon Dioxide 16 mmol/L (22-32); Chloride 110 mmol/L (98-107); Estimated Glomerular Filt Rate > 60 mL/min (>60); Glucose 139 mg/dL (70-99); HEMOLYSIS < 15 (0-50); Potassium 3.8 mmol/L (3.4-5.1); Sodium 137 mmol/L (137-145)
[2024-10-06 07:00] VITALS: O2SAT 96
[2024-10-06] MEDS: lisinopriL 20 MG TABLET 40 MG PO (09:27)
--- NOTE | 2024-10-06 11:01 | P.PN_ITS ---
Subjective Subjective Date Patient Seen: 10/06/24 Time Patient Seen: 11:01 Interval history: Patient is seen in follow-up of right foot infection. Diabetic. Crosscover for Dr. Newton. Patient was seen by orthopedist. Apparently put started with a small lesion at the bottom of her foot maybe a laceration. She had then walked on it quite a long time when she was on vacation and [place] and then it markedly changed over the last few days to where it is today. She had whole areas of her toe which sloughed off. She feels as if her erythema going up her childress is markedly improved. She feels like her toes are waking up at least the 4 toes on the 2nd through 4th. She has had no fevers no chills and otherwise is feeling well. Exam Vital Signs (past 8 hours): Oxygen Delivery Method Room Air Oxygen Flow Rate 0 Narrative Exam Narrative: Alert female in no acute distress Right foot shows basically a black great toe. She has a delineating line about 4 cm behind that which seems to go across to the edge of the foot laterally inferiorly it is along the MTP joints. Most of the skin gone in that location. Actually seems to have healthy tissue proximal to that. There was no real erythema in that area. Objective Labs 10/06/24 04:30 10/06/24 04:30 Labs: Laboratory Results - last 24 hr 10/05/24 10/06/24 11:35 04:30 WBC 12.6 H 7.0 RBC 4.00 3.31 L Hgb 12.4 10.5 L Hct 36.4 29.9 L MCV 90.9 90.2 MCH 31.0 31.6 MCHC 34.2 35.1 RDW 13.6 13.4 Plt Count 499 H 323 Neut % (Auto) 82.6 H 72.8 Lymph % (Auto) 11.6 L 18.2 L [place] % (Auto) 5.0 7.5 Eos % (Auto) 0.3 L 0.9 L Baso % (Auto) 0.5 0.6 Neut # (Auto) 54352 H 5100 Lymph # (Auto) 1500 1300 [place] # (Auto) 600 500 Eos # (Auto) 0 100 Baso # (Auto) 100 0 ESR 90 H PT 15.3 H INR 1.4 H APTT 34 Sodium 134 L 137 Potassium 4.1 3.8 Chloride 102 110 H Carbon Dioxide 18 L 16 L BUN 17 16 Creatinine 1.27 H 1.01 Estimated GFR 48 L > 60 BUN/Creatinine Ratio 13.4 15.8 Glucose 200 H 139 H Lactate 1.4 Calcium 7.8 L 6.7 L Total Bilirubin 0.8 AST 35 ALT 37 H Alkaline Phosphatase 97 C-Reactive Protein 6.3 H Total Protein 8.2 Albumin 3.5 Globulin 4.7 H Albumin/Globulin Ratio 0.7 L Lipase 94 Procalcitonin 0.452 PFSH Medical History Type 2 diabetes mellitus with hyperglycemia Hypertension, essential Idiopathic peripheral neuropathy (11/02/13) Obesity (11/02/13) GERD (gastroesophageal reflux disease) Diabetes type 2, controlled Family History Father Family hx of colon cancer Mother Family history of breast cancer Social History household members: none Smoking Status: Former smoker alcohol intake: current Assessment & Plan Assessment & Plan narrative: Severe infection right great toe and forefoot. Concern for gas improved with current Rocephin and clindamycin. Orthopedist appreciate following. MRIs supposed to be done today. Not resulted at least at this time has not been done. Will follow that up. Will repeat CBC which is moving in the right direction tomorrow. Will also repeat sed rate. Appears as if antibiotic coverage is good at this time. G stain shows Gram-positive cocci and Gram- negative bacilli. Culture still pending. Blood cultures are negative. Will follow along with orthopedist. Clearly is going to need amputation. Question is where will that best be done. Hopefully we can get some improvement in the foot and just do the toe. That is at this time. Will see what MRI shows. At least we are not getting worse. Anemia. Probably hydration but will see how things go no definitive evidence of blood loss. Recheck a.m.. Fluids have been slowed down. Will follow. Type 2 diabetes. Moderately well controlled. Currently on Lantus and sliding scale. Will continue at this stage with no changes. Hypertension. Overall slightly elevated will have to see how she does. May need to change medication. VT E prophylaxis as per ortho Code status full. Disposition. Patient will be in the hospital several more days would be my guess. Will be dependent on what will be have to be done withnd where that amputation will need to be as part of foot or toe or leg. Patient understands. This really is going to be determined by orthopedist. 55 minutes spent with patient nursing chart review orders dictation Time-Based Coding :: [TOTAL MINUTES] spent with patient and on the chart (including review of chart, obtaining history, exam, reviewing outside data, placing orders, documenting exam and treatment plan, and counseling patient) on [DATE]. Quality VTE Deep Vein Thrombosis/Pulmonary Embolism Present on Admission: No
[2024-10-06 11:24] VITALS: BP 157/71; PULSE 82; RESP 16; TEMP 36.1; O2SAT 100
[2024-10-06] MEDS: cefTRIAXone 2,000 MG in SODIUM CHLORIDE 0.9% 100 ML 200 MG IV (13:00)
--- NOTE | 2024-10-06 16:44 | DI.MRI.S_ITS ---
PROCEDURE: MR FOOT RT WO CON INDICATIONS: Right hallux infection TECHNIQUE: Multiphasic, multisequence MRI of the forefoot was performed, without intravenous contrast administration. COMPARISON: [facility], CR, XR FOOT RT MIN 3V, 10/05/2024, 11:45. FINDINGS: Image quality: Excellent. Bones and joints: There is T2 edema throughout the 1st through 3rd metatarsals, 1st proximal and distal phalanx. Questionable bony sequestrum of the 1st metatarsal shaft. Soft tissues: Extensive soft tissue edema of the forefoot to midfoot, with phlegmonous change and subcutaneous gas. IMPRESSION: Suspected osteomyelitis of the 1st metatarsal, phalanges, 2nd metatarsal and 3rd metatarsal head. Extensive subcutaneous edema and gas throughout the midfoot and forefoot. Dictated by: Jason Baer M.D. on 10/07/2024 at 10:13 Approved by: Jason Baer M.D. on 10/07/2024 at 10:17
--- NOTE | 2024-10-06 16:59 | PC.NURSE ---
Addendum entered by Eliza Farmer R.N. 10/06/24 17:58: Dsg was applied to right foot w/o incidence per MD orders. Original Note: Pt A/O Denies discomfort Right foot w/ large wound. Wound draining copious amounts of drainage, (see photos) IVF infusing as per orders, IV ABO infusing. Call light w/in reach, pt calls appropriately for needs. Continue w/plan of care.
[2024-10-06 17:00] VITALS: BP 172/78; PULSE 84; RESP 19; TEMP 35.9; O2SAT 100
[2024-10-06] MEDS: INSULIN LISPRO 100 UNIT/ML 3ML VIAL SUBCUT (17:12)
[2024-10-06] MEDS: NORTRIPTYLINE HCL 25 MG CAPSULE PO (20:21)
[2024-10-06] MEDS: GABAPENTIN 600 MG TABLET PO (20:21)
[2024-10-06] MEDS: HYDROMORPHONE 0.5 MG INJ IV (20:29)
[2024-10-06 20:31] VITALS: BP 185/75; PULSE 93; RESP 20; TEMP 35.9; O2SAT 96
[2024-10-07] MEDS: CLINDAMYCIN 600 MG/50 ML PIGGYBACK 50 MG IV ×4 (02:13→20:45)
[2024-10-07] MEDS: SODIUM CHLORIDE 0.9% 1,000 ML 100 ML IV (02:14)
[2024-10-07 04:11] VITALS: BP 169/71; PULSE 81; RESP 18; TEMP 36.1; O2SAT 97
[2024-10-07 05:13] LABS: Add Manual Diff / Slide Review NO; Basophils Absolute Auto 0 /uL (0-100); Basophils Percent Auto 0.9 % (0-2); Eosinophils Absolute Auto 100 /uL (0-450); Eosinophils Percent Auto 1.3 % (2-4); Hematocrit 29.3 % (36-46); Hemoglobin 10.1 g/dL (12.0-16.0); Lymphocytes Absolute Auto 1400 /uL (1100-4500); Lymphocytes Percent Auto 25.6 % (25-40); Mean Corpuscular HGB Conc 34.4 % (30-36); Mean Corpuscular Hemoglobin 31.1 PG (26-34); Mean Corpuscular Volume 90.6 fL (80-100); Monocytes Absolute Auto 400 /uL (0-900); Monocytes Percent Auto 7.5 % (3-14); Neutrophils Absolute Auto 3600 /uL (1500-7000); Neutrophils Percent Auto 64.7 % (50-75); Platelet Count 268 X10^3/uL (150-400); Red Blood Cell Count 3.23 X10^6/uL (4.0-5.2); Red Cell Distribution Width 13.8 % (11.6-14.8); White Blood Cell Count 5.6 X10^3/uL (4.5-11.0)
[2024-10-07 05:40] LABS: Erythrocyte Sedimentation Rate 81 MM/HR (0-20)
[2024-10-07 05:54] LABS: Alanine Aminotransferase 24 IU/L (<35); Albumin 2.5 g/dL (3.5-5.0); Albumin Globulin Ratio 0.7 (1.0-2.8); Alkaline Phosphatase 72 U/L (38-126); Aspartate Aminotransferase 28 IU/L (14-36); BUN Creatinine Ratio 13.9 (6-22); Bilirubin Total 0.4 mg/dL (0.2-1.3); Blood Urea Nitrogen 14 mg/dL (7-17); Calcium 6.5 mg/dL (8.4-10.2); Carbon Dioxide 18 mmol/L (22-32); Chloride 111 mmol/L (98-107); Estimated Glomerular Filt Rate > 60 mL/min (>60); Globulin 3.7 g/dL (1.7-4.1); Glucose 157 mg/dL (70-99); HEMOLYSIS < 15 (0-50); Potassium 3.9 mmol/L (3.4-5.1); Sodium 138 mmol/L (137-145); Total Protein 6.2 g/dL (6.3-8.2)
[2024-10-07 07:00] VITALS: O2SAT 94
[2024-10-07] MEDS: PANTOPRAZOLE DR 40 MG TABLET PO (07:20)
[2024-10-07] MEDS: lisinopriL 20 MG TABLET 40 MG PO (08:18)
[2024-10-07] MEDS: INSULIN LISPRO 100 UNIT/ML 3ML VIAL SUBCUT ×2 (08:19→12:21)
[2024-10-07] MEDS: cefTRIAXone 2,000 MG in SODIUM CHLORIDE 0.9% 100 ML 200 MG IV (12:24)
--- NOTE | 2024-10-07 12:52 | PM.PN.1 ---
Subjective Subjective Date Patient Seen: 10/07/24 Time Patient Seen: 12:52 Interval history: Patient feeling a little better this morning. Slept well with the pain medicine last night. No new changes or complaints. Otherwise doing well. No new changes or complaints. Exam Vital Signs (past 8 hours): Oxygen Delivery Method Room Air Oxygen Flow Rate 0 Narrative Exam Narrative: Alert female much less fatigued in no acute distress Lungs are clear heart is regular rate and rhythm did not unbandage today Objective Labs 10/07/24 04:34 10/07/24 04:34 Labs: Laboratory Results - last 24 hr 10/07/24 04:34 WBC 5.6 RBC 3.23 L Hgb 10.1 L Hct 29.3 L MCV 90.6 MCH 31.1 MCHC 34.4 RDW 13.8 Plt Count 268 Neut % (Auto) 64.7 Lymph % (Auto) 25.6 [place] % (Auto) 7.5 Eos % (Auto) 1.3 L Baso % (Auto) 0.9 Neut # (Auto) 3600 Lymph # (Auto) 1400 [place] # (Auto) 400 Eos # (Auto) 100 Baso # (Auto) 0 ESR 81 H Sodium 138 Potassium 3.9 Chloride 111 H Carbon Dioxide 18 L BUN 14 Creatinine 1.01 Estimated GFR > 60 BUN/Creatinine Ratio 13.9 Glucose 157 H Calcium 6.5 L Total Bilirubin 0.4 AST 28 ALT 24 Alkaline Phosphatase 72 Total Protein 6.2 L Albumin 2.5 L Globulin 3.7 Albumin/Globulin Ratio 0.7 L PFSH Medical History Type 2 diabetes mellitus with hyperglycemia Hypertension, essential Idiopathic peripheral neuropathy (11/02/13) Obesity (11/02/13) GERD (gastroesophageal reflux disease) Diabetes type 2, controlled Family History Father Family hx of colon cancer Mother Family history of breast cancer Social History household members: none Smoking Status: Former smoker alcohol intake: current Assessment & Plan Assessment & Plan narrative: Severe infection right great toe and forefoot. MRI shows osteomyelitis of 1st toe phalanges metatarsal 2nd metatarsal and 3rd metatarsal head. Some gas formation in the tissue of the foot and forefoot. She feels like pain is better. Certainly evaluating her leg today it is certainly no erythema. She is still swollen. Has a lot of what appears to be tissue there yesterday. The question is whether or not she needs to be debrided. Discuss with orthopedist yesterday who would like to wait as long as possible for making a decision. Vascular supply to the leg is compromised and the question is whether or not she needs to go for revascularization if that is possible prior to surgical attempt. Clearly osteomyelitis going to take weeks to resolve. Patient lives alone with her 90-year-old mother and the question is whether or not she is a candidate for home IVs and may need to go to rehab center. Although this is going to need to be worked out in the next week. Wound care maybe somebody to look at it and debride if needed or Dr. Garcia will discuss again tomorrow. Cultures show group of strep but are not definitively final. I would like to give it 1 more day of broad spectrum antibiotics and see what final cultures are if not what looks like we can switch to cefazolin possibly which would be easy or Rocephin if we are going to do daily treatment. For 6 weeks. Question is whether or not we are going to be able to wait and she is going to require a BKA. We discussed this with her. She understands questions answered. Anemia. Appears to be stable. Will continue to follow. Recheck a.m.. Type 2 diabetes. Seems to be actually pretty well-controlled on current regime. Will continue insulin and follow. Certainly as aOutpatient she will need different therapy. Vascular compromise left leg. Actually seems to be pretty high at least what they found. That there is probably some compromise proximal and distal. Whether or not this is something that can be done prior to surgery is unclear. Whether or not this can be something that can be saved from us larger amputation will just have to see. Will need to discuss with vascular surgeons next week. It would require transfer to another institution. Hypertension. Patient has mildly elevated. Would consider amlodipine but really do not want to cause any swelling in her feet patient is maxed out on lisinopril. Will add hydrochlorothiazide and follow. DVT prophylaxis will start Lovenox Code status. Full. Disposition. Lots of questions that are not answered at this time. We will order PICC line to be placed tomorrow regardless of what happened she will be needing long-term IV antibiotics unless she has a amputation in the near future which is unclear at this time I think it would be best if we are looking at the. Will do that tomorrow. Will have Dr. Newton and Dr. Ruiz workup plan and the question of whether or not a transfer maybe something that will be possible with possible vascular treatment. Patient understands. Questions answered. 60 minutes spent with the patient orthopedist discussion discussion with nursing social service and dictation orders Time-Based Coding :: [TOTAL MINUTES] spent with patient and on the chart (including review of chart, obtaining history, exam, reviewing outside data, placing orders, documenting exam and treatment plan, and counseling patient) on [DATE]. Quality VTE Deep Vein Thrombosis/Pulmonary Embolism Present on Admission: No
[2024-10-07 13:00] VITALS: BP 170/66; PULSE 77; RESP 17; TEMP 36.1; O2SAT 100
--- NOTE | 2024-10-07 14:01 | PC.NURSE ---
Patient has a significant infected great toe with black eschar and peeling skin. Infection goes to mid metatarsal, and 2nd and third toe. This area has pus and is moist. Area with redness and pungent odor. Patient is getting iv antibiotics and had an MRI this morning. Blood sugars have been 157 and 290, insulin given. Patient is a one person assist to ambulate. Dressing to R.foot has been changed, abd pad and kurlex gauze applied. Patient resting now and has not needed pain medication when offered.
[2024-10-07] MEDS: ENOXAPARIN 40 MG/0.4 ML SYRINGE SUBCUT (14:12)
[2024-10-07] MEDS: hydroCHLOROthiazide 25 MG TABLET PO (14:12)
--- NOTE | 2024-10-07 14:32 | CM.DANOTE ---
Initial DCP Assessment Note Pt is a 63 yo female, resident of [place], admitted INPT for management of severe infection right great toe and forefoot. MRI shows osteomyelitis of 1st toe phalanges metatarsal 2nd metatarsal and 3rd metatarsal head. Ortho following, addtl input anticipated from Dr Garcia Sunday 10/08 re plan of care. PCP: DR Newton Payer: Demar Beaver w/patient who reports she lives independently in [place], her 89 and 90 yo parents live near. Patient has no children, has two supportive brothers that will soon be rotating in to help out their parents. Patient works from home for [employer], currently on FMLA. Discussed discharge plan and patient feels SNF would be reasonable at this time because she has no one to assist her. Preference is [facility]. Patient explains Ortho is considering a BKA. 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 Patient may not be a good home infusion candidate. Continued safety assessment of this discharge plan option is needed. Referral emailed to October at [facility]. PASRR completed. Ativan was NOT included on PASRR, this medication is not on patient's home med list. No dx of depression/anxiety. CM team will plan to follow clinical course closely. LACEY Chang Discharge Planning/Care Management CM Discharge Assessment Start: 10/05/24 14:01 Freq: Status: Active Protocol: Document 10/07/24 14:29 SIXTO (Rec: 10/07/24 14:32 SIXTO [id number]) Discharge Planning Assessment Assigned Mail Agent LACEY Lacey DPOA/Assigned Designee Name Ning Rico mom (89 yo) Contact Information [phone] Advance Directives? No History Provided By Patient,Medical Record Has Patient been admitted in last 30 No days? Prior Living Arrangements House Household Members none Type of transporation used prior to Relies on Others admit Comment Does not drive, poor eye sight Independent with ADL's Yes Is patient alert and oriented? Yes Comment On FMLA from her job at [employer] Patient/Family Preference Retirement Facility,Home with Home Health Barriers to Discharge Yes Transportation Arrangement Family vs wc van depending on home vs SNF Additional Comment Waiting on medical plan of care. [employer] Updated in Patient Room with Yes name and ext. # of Mail Agent
[2024-10-07 17:45] VITALS: BP 180/77; PULSE 82; RESP 22; TEMP 36.7; O2SAT 98
[2024-10-07] MEDS: HYDROMORPHONE 0.5 MG INJ IV (18:52)
[2024-10-07 19:50] VITALS: BP 189/76; PULSE 83; RESP 17; TEMP 36.3; O2SAT 99
[2024-10-07] MEDS: NORTRIPTYLINE HCL 25 MG CAPSULE PO (20:45)
[2024-10-07] MEDS: GABAPENTIN 600 MG TABLET PO (20:45)
--- NOTE | 2024-10-08 | DI.RAD.S_ITS ---
PROCEDURE: XR CHEST FOR PICC 1V INDICATIONS: CHECK LINE PLACEMENT TECHNIQUE: One view of the chest was acquired. COMPARISON: [facility], , XR CHEST FOR PICC 1V, 10/08/2024, 10:24. FINDINGS: Surgical changes and devices: PICC line tip remains at the junction of the right subclavian and right brachiocephalic veins. Lungs and pleura: Lungs are clear. No pleural effusions or pneumothorax. Mediastinum: Mediastinal contours appear normal. Heart size is enlarged. Bones and chest wall: No suspicious bony lesions. Overlying soft tissues appear unremarkable. IMPRESSION: Unchanged position of PICC line catheter. Recommend advancement. Dictated by: Richard Flores M.D. on 10/08/2024 at 17:25 Approved by: Richard Flores M.D. on 10/08/2024 at 17:26
[2024-10-08] MEDS: CLINDAMYCIN 600 MG/50 ML PIGGYBACK 50 MG IV ×3 (01:50→14:31)
[2024-10-08 01:54] VITALS: BP 156/75; PULSE 88; RESP 17; TEMP 37; O2SAT 100
[2024-10-08] MEDS: ACETAMINOPHEN 325 MG TABLET 650 MG PO (03:10)
[2024-10-08 05:22] LABS: Add Manual Diff / Slide Review NO; Basophils Absolute Auto 100 /uL (0-100); Eosinophils Absolute Auto 100 /uL (0-450); Eosinophils Percent Auto 1.2 % (2-4); Hematocrit 27.9 % (36-46); Hemoglobin 9.9 g/dL (12.0-16.0); Lymphocytes Absolute Auto 1200 /uL (1100-4500); Lymphocytes Percent Auto 23.6 % (25-40); Mean Corpuscular HGB Conc 35.4 % (30-36); Mean Corpuscular Hemoglobin 31.8 PG (26-34); Mean Corpuscular Volume 89.7 fL (80-100); Monocytes Absolute Auto 400 /uL (0-900); Monocytes Percent Auto 8.1 % (3-14); Neutrophils Absolute Auto 3500 /uL (1500-7000); Neutrophils Percent Auto 66.1 % (50-75); Platelet Count 256 X10^3/uL (150-400); Red Blood Cell Count 3.11 X10^6/uL (4.0-5.2); Red Cell Distribution Width 13.6 % (11.6-14.8); White Blood Cell Count 5.3 X10^3/uL (4.5-11.0)
[2024-10-08] MEDS: PANTOPRAZOLE DR 40 MG TABLET PO (06:16)
--- NOTE | 2024-10-08 06:42 | PC.NURSE ---
Small drainage to R foot dressing. Removed abd pad and gauze wrap and placed 2 abd pads and gauze wrap. CDI. Pt tolerated well.
--- NOTE | 2024-10-08 07:47 | P.PN_ITS ---
Subjective Subjective Date Patient Seen: 10/08/24 Time Patient Seen: 07:48 Interval history: Patient little change since admission. Continues to have some sloughing of skin around her wound MRI was suspicious for osteomyelitis of first metatarsal including first toe and phalanges come a second metatarsal and third metatarsal head KINJAL suggested some degree of hemodynamic stenosis in the right leg at the right posterior tibial artery and dorsalis pedis Wound cultures not helpful as expected Blood sugars for the most part well controlled not an active problem or issue on current coverage insulin This morning patient is with her mother, with whom she lives, with some questions. Basically seeking higher level of care knowing that any amputation that occurs that is going to be life changing event etcetera. Unsure about going home versus staying in the hospital wonders about status of wound care or role of wound care in this setting etcetera Exam Vital Signs (past 8 hours): - 10/08/24 01:54 Temperature 98.6 F Pulse Rate 88 Respiratory Rate 17 Blood Pressure 156/75 H Pulse Oximetry 100 Oxygen Flow Rate 0 Oxygen Delivery Method Room Air Oxygen Flow Rate 0 Objective Labs 10/08/24 04:48 10/07/24 04:34 Labs: Laboratory Results - last 24 hr 10/08/24 04:48 WBC 5.3 RBC 3.11 L Hgb 9.9 L Hct 27.9 L MCV 89.7 MCH 31.8 MCHC 35.4 RDW 13.6 Plt Count 256 Neut % (Auto) 66.1 Lymph % (Auto) 23.6 L [place] % (Auto) 8.1 Eos % (Auto) 1.2 L Baso % (Auto) 1.0 Neut # (Auto) 3500 Lymph # (Auto) 1200 [place] # (Auto) 400 Eos # (Auto) 100 Baso # (Auto) 100 [facility] Medical History Type 2 diabetes mellitus with hyperglycemia Hypertension, essential Idiopathic peripheral neuropathy (11/02/13) Obesity (11/02/13) GERD (gastroesophageal reflux disease) Diabetes type 2, controlled Family History Father Family hx of colon cancer Mother Family history of breast cancer Social History household members: none Smoking Status: Former smoker alcohol intake: current Assessment & Plan Assessment & Plan narrative: 1. Right lower extremity wound of great toe and first through third metatarsals-continue current antibiotic therapy. Orthopedic surgery would like to wait as long as possible in an effort to help preserve as much of the foot as possible. If she can begin to heal on her own with antibiotic therapy that will be helpful. However from a vascular standpoint there appears to be some significant stenosis. I agree that patient would likely benefit from tertiary care center with the availability of vascular services that we certainly do not have here. Also availability of Orthopedic surgery and Podiatry as well as the post amputation care, so some place like [facility] which is patient and her mother's first choice for a tertiary care center would make sense. Discussed at length with patient and family that we do not always have a choice it does depend on bed availability and or acceptance from the alternative facility. I would have no problem sending her to [facility] as I believe they have an excellent vascular team there as well. Patient's second choice would probably be [facility]. We will initiate process for transfer but continue current therapies for now. Given that we still are uncertain as to timing and detail regarding surgery I think wound care for debridement etcetera he was still not appropriate at this time anyway. Maybe a role for that in the future if there is a delay before performing surgery/amputation but at the moment for today not appropriate in my opinion. 2. Diabetes-adequate control for now no issues 3. Hypertension-patient not well controlled. Hydrochlorothiazide added yesterday. Continue monitor today and if not improved will add additional medication such as amlodipine 4. Disposition-to be determined. PICC line to be placed as she clearly will need long-term antibiotics (unless of course she unfortunately require something like a BKA) Time-Based Coding :: [TOTAL MINUTES] spent with patient and on the chart (including review of chart, obtaining history, exam, reviewing outside data, placing orders, documenting exam and treatment plan, and counseling patient) on [DATE]. Quality VTE Deep Vein Thrombosis/Pulmonary Embolism Present on Admission: No IH PROFEE Cat Scanner Operator Document charge(s): Yes Charge Codes Subsequent inpatient/observation care: [id number]
--- NOTE | 2024-10-08 07:51 | P.PN_ITS ---
Exam Vital Signs (past 8 hours): - 10/08/24 01:54 Temperature 98.6 F Pulse Rate 88 Respiratory Rate 17 Blood Pressure 156/75 H Pulse Oximetry 100 Oxygen Flow Rate 0 Oxygen Delivery Method Room Air Oxygen Flow Rate 0 Objective Labs 10/08/24 04:48 10/07/24 04:34 Labs: Laboratory Results - last 24 hr 10/08/24 04:48 WBC 5.3 RBC 3.11 L Hgb 9.9 L Hct 27.9 L MCV 89.7 MCH 31.8 MCHC 35.4 RDW 13.6 Plt Count 256 Neut % (Auto) 66.1 Lymph % (Auto) 23.6 L [place] % (Auto) 8.1 Eos % (Auto) 1.2 L Baso % (Auto) 1.0 Neut # (Auto) 3500 Lymph # (Auto) 1200 [place] # (Auto) 400 Eos # (Auto) 100 Baso # (Auto) 100 PFSH Medical History Type 2 diabetes mellitus with hyperglycemia Hypertension, essential Idiopathic peripheral neuropathy (11/02/13) Obesity (11/02/13) GERD (gastroesophageal reflux disease) Diabetes type 2, controlled Family History Father Family hx of colon cancer Mother Family history of breast cancer Social History household members: none Smoking Status: Former smoker alcohol intake: current Assessment & Plan Assessment & Plan narrative: Eliza's studies have been reviewed. Her foot MRI shows the expected extensive osteomyelitis throughout the first toe which is necrotic. It also shows changes in the 2nd metatarsal and 3rd metatarsal head. Amputation limited to the areas showing MRI changes would leave her with a nonfunctional foot and would also involve repairing skin which is currently draining purulent fluid and sloughing. A transmetatarsal amputation would be a potential option, although this would also be attempting to get skin to close that is currently draining purulent fluid and sloughing off. Additionally, her vascular studies showed Monophasic waveforms and elevated velocities in the right posterior tibial artery and dorsalis pedis artery, likely indicating hemodynamically significant stenosis as well as upstream stenosis. This would further complicate wound healing as she may not have adequate blood supply to the area to heal a transmetatarsal amputation wound even if it were able to be closed. I therefore am hoping that with extended outpatient antibiotics the infection may improve to a degree that allows isolated amputation of the hallux. I would recommend she be discharged with an aggressive empiric antibiotic regimen, likely IV, and followup urgently with the vascular service at [facility] for potential intervention to improve bloodlfow to her foot for eventual wound healing after amputation of her necrotic hallux. I would also followup with her in the outpatient setting to monitor the progression of the wound and plan for eventual amputation. Time-Based Coding :: [TOTAL MINUTES] spent with patient and on the chart (including review of chart, obtaining history, exam, reviewing outside data, placing orders, documenting exam and treatment plan, and counseling patient) on [DATE]. Quality VTE Deep Vein Thrombosis/Pulmonary Embolism Present on Admission: No IH PROFEE Teacher'S Assistant Document charge(s): No
[2024-10-08 08:00] VITALS: BP 156/73; PULSE 75; RESP 17; TEMP 36.1; O2SAT 96
[2024-10-08] MEDS: INSULIN LISPRO 100 UNIT/ML 3ML VIAL SUBCUT ×3 (09:04→17:41)
[2024-10-08] MEDS: lisinopriL 20 MG TABLET 40 MG PO (09:11)
[2024-10-08] MEDS: ENOXAPARIN 40 MG/0.4 ML SYRINGE SUBCUT (09:11)
[2024-10-08] MEDS: hydroCHLOROthiazide 25 MG TABLET PO (09:11)
--- NOTE | 2024-10-08 10:20 | DI.RAD.S_ITS ---
PROCEDURE: XR CHEST FOR PICC 1V INDICATIONS: picc placement confirmation COMPARISON: [facility], , CHEST 1 VIEW, 01/01/2016, 16:03. FINDINGS: PICC was placed by the intravenous therapy team from the right side. Fluoroscopic spot film demonstrates the tip of PICC projecting to the area of junction of the right subclavian vein and right brachiocephalic vein. Advancement is suggested by approximately 7 cm. IMPRESSION: Tip of PICC projects to the area of junction of the right subclavian and right brachiocephalic veins. Advancement is suggested. Dictated by: Richard Flores M.D. on 10/08/2024 at 11:18 Approved by: Richard Flores M.D. on 10/08/2024 at 11:20
[2024-10-08 12:00] VITALS: BP 189/80; TEMP 36.1
[2024-10-08] MEDS: cefTRIAXone 2,000 MG in SODIUM CHLORIDE 0.9% 100 ML 200 MG IV (12:48)
--- NOTE | 2024-10-08 13:28 | CM.DPC ---
Addendum entered by LACEY Cruz 10/08/24 14:36: ADD: Per plug stitcherDemar has approved hospital transfer and [facility] has accepted and waiting for confirmation on bed availability and time of transport. BF Original Note: DCP Cont: Per Ortho Consult and MD, pt with imaging showing osteomyelitis with necrosis and with concern for impacts to the 2nd and 3rd metatarsals. Recommendation of hospital transfer for higher level of care needs with Vascular Surgeon for amputation needs. MD attempting hospital transfer. SW met bedside with pt and her mother and explained role and mother fairly anxious and stating preference is to transfer to [facility] or [facility] in [place]. SW explained process of involving [facility] in the hospital transfer process and then MD needing to find accepting Surgeon and a facility with available beds and chance their first preferences might not be an option. They acknowledged understanding and were appreciative, but definitely hoping for those two hospitals. Updated RN and MD. LACEY Cruz
--- NOTE | 2024-10-08 15:09 | P.DS_ITS ---
History of Present Illness History of Present Illness Date Patient Seen: 10/08/24 Time Patient Seen: 15:09 Chief complaint: Right foot wound check for gangrene Narrative: 63-year-old female with longstanding diabetes admitted via emergency department for serious infection of right great toe She was seen in the clinic about 10 days ago on the 25 of September. She presented after not being seen for almost a year. She had described several days perhaps a week of increased swelling and pain in the great toe on the right side. She was says that is all started when she was in [place] and did a whole lot of walking and did not realize she was having some skin breakdown in her shoes etcetera. She was started on oral antibiotics and urgent referral was made to the wound care center She presented to the Wound Care Center today with increasing blackness of the toe extending into the distal foot. A whole bunch of the skin that is sloughed off several days ago apparently. Pain has been much better. She was sent to the ER where she was admitted for probable surgical intervention and continue parental antibiotics Patient's diabetes has been poorly controlled over time although her A1c done at that visit 10 days ago was much better than usual for her. Discharge Providers Provider Date of admission: 10/05/24 13:49 Discharge Date: 10/08/24 Primary care physician: Vito Newton MD Consults: 10/05/24 12:59 Consult to Orthopedic Surgery Stat Comment: Consulting Provider: Russell Garcia Reason for consultation: Osteomyelitis, diabetic foot wound Has provider been notified: Yes Discharge provider: Vito Newton MD Summary Hospital Course Discharge Diagnosis: 1. Severe infection and necrosis right great toe 2. Osteomyelitis right first second and third metatarsal heads 3. Diabetes type 2 on oral medication at home 4. Peripheral neuropathy 5. Obesity with BMI 31 6. Peripheral arterial disease right lower extremity Hospital Course: Patient admitted to the hospital as noted above. She was seen in consultation by Orthopedic surgery who wanted to maximize healing with antibiotics if at all possible prior to undergoing surgery MRI was performed which demonstrated of course severe infection of right great toe but also the right first metatarsal and the distal heads of the second and third metatarsals as well. KINJAL demonstrated likely significant vascular stenoses proximally in the right leg Patient responded adequately to IV antibiotics. That has not appear to be worsening of her infection and her minimal leukocytosis resolved. Pain also improved somewhat with this therapy. Given the vascular findings as above after discussion with the orthopedic surgery he was decided that patient would benefit if that is all possible from some degree of revascularization prior to undertaking surgery in an effort again to preserve as much of the foot as possible to allow for a partial amputation rather than something more severe like a BKA. After consultation with the patient's healthcare insurance it was elected to transfer her to [facility] for further evaluation and management. No vascular surgery services no interventional radiology or other such services were available at this institution to help manage her vascular portion of her disease Blood sugar was well controlled during this hospitalization with coverage insulin alone Patient did have an attempt at a PICC line placement prior to discharge. Line was placed but is not quite into a central venous position maybe technically more of a midline catheter. Status at Discharge Cognitive/behavioral status at discharge: at baseline, oriented Functional status at discharge: uses cane/walker Overall status at discharge: other Time Spent with Patient Time spent: Greater than 30 minutes Exam Vital Signs (past 8 hours): - 10/08/24 08:00 10/08/24 12:00 Temperature 96.9 F L 96.9 F L Pulse Rate 75 Respiratory Rate 17 Blood Pressure 156/73 H 189/80 H Pulse Oximetry 96 Oxygen Flow Rate 0 Oxygen Delivery Method Room Air Oxygen Flow Rate 0 Objective Imaging KINJAL: Radiologist's impression: [place] [address] Ultrasound Report Signed Patient: Eliza Rico MR#: [id number] : 1960 Acct:[id number] Age/Sex: 63 / F Date of Service: 10/05/24 Loc: 224-1 Accession Number: [id number] Procedure: US KINJAL or TBI esqueda single level Ordering Provider: Russell Garcia MD PROCEDURE: US KINJAL LIMITED SINGLE LEVEL INDICATIONS: DIABETIC FOOT ULCER TECHNIQUE: 1) Real time scanning was performed of the posterior tibial artery and dorsalis pedis, with image documentation and spectral Doppler. 2) Ankle-brachial indices were obtained bilaterally and recorded. COMPARISON: None. FINDINGS: The right posterior tibial artery has a velocity of 131 centimeters/second, monophasic waveform. The right dorsalis pedis artery has a velocity of 150 centimeter/second, monophasic waveform. The left posterior tibial artery has a velocity of 47 centimeters/second, with biphasic waveform. The left dorsalis pedis artery has a velocity 103 centimeter/second, with biphasic waveform. Right brachial artery blood pressure cannot be obtained due to an IV. Left brachial blood pressure measures 174/77. The right ankle brachial index measures 1.2. The left ankle brachial index measures 1.2. IMPRESSION: The right brachial index measures 1.2, however still likely abnormal in the presence of elevated velocities in the dorsalis pedis and posterior tibial arteries. The left brachial index measures 1.2, normal. Elevated blood pressure at 174/77. Monophasic waveforms and elevated velocities in the right posterior tibial artery and dorsalis pedis artery, likely indicating hemodynamically significant stenosis as well as upstream stenosis. Dictated by: Jason Baer M.D. on 10/05/2024 at 18:32 Approved by: Jason Baer M.D. on 10/05/2024 at 18:35 MRI- FOOT: Radiologist's impression: [place] [address] Magnetic Resonance Report Signed Patient: Eliza Rico MR#: [id number] : 1960 Acct:[id number] Age/Sex: 63 / F Date of Service: 10/06/24 Loc: 224-1 Accession Number: [id number] Procedure: MR foot RT wo con Ordering Provider: Russell Garcia MD PROCEDURE: MR FOOT RT WO CON INDICATIONS: Right hallux infection TECHNIQUE: Multiphasic, multisequence MRI of the forefoot was performed, without intravenous contrast administration. COMPARISON: [facility], CR, XR FOOT RT MIN 3V, 10/05/2024, 11:45. FINDINGS: Image quality: Excellent. Bones and joints: There is T2 edema throughout the 1st through 3rd metatarsals, 1st proximal and distal phalanx. Questionable bony sequestrum of the 1st metatarsal shaft. Soft tissues: Extensive soft tissue edema of the forefoot to midfoot, with phlegmonous change and subcutaneous gas. IMPRESSION: Suspected osteomyelitis of the 1st metatarsal, phalanges, 2nd metatarsal and 3rd metatarsal head. Extensive subcutaneous edema and gas throughout the midfoot and forefoot. Dictated by: Jason Baer M.D. on 10/07/2024 at 10:13 Approved by: Jason Baer M.D. on 10/07/2024 at 10:17 Labs 10/08/24 04:48 10/07/24 04:34 Labs: Laboratory Results - last 24 hr 10/08/24 04:48 WBC 5.3 RBC 3.11 L Hgb 9.9 L Hct 27.9 L MCV 89.7 MCH 31.8 MCHC 35.4 RDW 13.6 Plt Count 256 Neut % (Auto) 66.1 Lymph % (Auto) 23.6 L [place] % (Auto) 8.1 Eos % (Auto) 1.2 L Baso % (Auto) 1.0 Neut # (Auto) 3500 Lymph # (Auto) 1200 [place] # (Auto) 400 Eos # (Auto) 100 Baso # (Auto) 100 PFSH Medical History Type 2 diabetes mellitus with hyperglycemia Hypertension, essential Idiopathic peripheral neuropathy (11/02/13) Obesity (11/02/13) GERD (gastroesophageal reflux disease) Diabetes type 2, controlled Family History Father Family hx of colon cancer Mother Family history of breast cancer Social History household members: none Smoking Status: Former smoker alcohol intake: current Discharge Plan Discharge Plan Patient Disposition: [facility] Other facility: [address] Under care of provider: Dr. Yates Discharge Health Status Multidrug resistant organism: No MDRO Precautions: [place] Diet/Activity/Treatments Diet: Diet as Tolerated and Carb-consistent/Diabetic Liquid consistency: Normal/Thin Food texture: Regular Discharge Data Primary Care Provider: Vito Newton VTE Deep Vein Thrombosis/Pulmonary Embolism Present on Admission: No IH PROFEE Charge Codes Discharge inpatient/observation: [id number]
[2024-10-08] MEDS: LORazepam 1 MG TABLET PO (18:05)
--- NOTE | 2024-10-08 20:02 | PC.NURSE ---
Patient had dinner prior to transfer. Dressing to right foot changed and wound photo taken. Cleansed with steril saline, covered with ABD pads and wrapped with kerlex. [facility] arrived to flower picker patient for transport to [facility], patient's BP 179/81 and 188/83 upon recheck.Patient states she is anxious about transferring. Confirmed with Dr. Newton patient OK to transfer with current BP, patient given lorazepam 1mg prior to leaving for anxiety. Report called to Zoey VALLE at [facility]. Patient left with [facility] transport and all her belongings.
== END 2024-10-08 18:10 | disposition short-term general hospital (02) | DRG 299 ==
LOC: ED 13:43 → AC 13:50
PROVIDERS: Family Medicine; Admitting Provider Internal Medicine; Emergency Provider Emergency Medicine; PCP Internal Medicine; Referring Provider Emergency Medicine; Visit Provider Internal Medicine
DX: E11.52 Type 2 diabetes mellitus with diabetic peripheral angiopathy with gangrene (principal); A48.0 Gas gangrene; M86.8X7 Other osteomyelitis, ankle and foot; I70.261 Atherosclerosis of native arteries of extremities with gangrene, right leg; I10 Essential (primary) hypertension; D64.9 Anemia, unspecified; E11.42 Type 2 diabetes mellitus with diabetic polyneuropathy; E66.9 Obesity, unspecified; B95.4 Other streptococcus as the cause of diseases classified elsewhere; Z79.84 Long term (current) use of oral hypoglycemic drugs; Z87.891 Personal history of nicotine dependence; Z68.31 Body mass index [BMI] 31.0-31.9, adult
CPT/HCPCS: 36415; 36569; 73630; 73718; 80048; 80053; 82962; 83605; 83690; 84145; 85025; 85610; 85651; 85730; 86140; 87040; 87070; 87077; 87147; 87205; 93005; 93922; 96361; 96365; 96366; 96367; 99284; J0692; J0696; J1171; J1650; J1815

== ENCOUNTER → 2024-11-27 10:16 | Outpatient (CLI) | payer OTHER, SELFPAY ==
[2024-10-05 15:55] VITALS: BMI 31.1
[2024-11-27 11:17] LABS: Add Manual Diff / Slide Review NO; Hematocrit 35.9 % (36-46); Hemoglobin 12.5 g/dL (12.0-16.0); Lymphocytes Absolute Auto 1900 /uL (1100-4500); Mean Corpuscular HGB Conc 34.7 % (30-36); Mean Corpuscular Hemoglobin 30.3 PG (26-34); Mean Corpuscular Volume 87.3 fL (80-100); Platelet Count 289 X10^3/uL (150-400)
[2024-11-27 11:54] LABS: Alanine Aminotransferase 17 IU/L (<35); Albumin 4.1 g/dL (3.5-5.0); Albumin Globulin Ratio 1.2 (1.0-2.8); Alkaline Phosphatase 100 U/L (38-126); Blood Urea Nitrogen 19 mg/dL (7-17); Calcium 9.3 mg/dL (8.4-10.2); Carbon Dioxide 29 mmol/L (22-32); Chloride 98 mmol/L (98-107); Estimated Glomerular Filt Rate > 60 mL/min (>60); Globulin 3.3 g/dL (1.7-4.1); Glucose 252 mg/dL (70-99); HEMOLYSIS < 15 (0-50); Potassium 4.6 mmol/L (3.4-5.1); Sodium 137 mmol/L (137-145); Total Protein 7.4 g/dL (6.3-8.2)
[2024-11-27 11:59] LABS: Hemoglobin A1C% w Est Avg Glu 6.7 % (4.0-6.0)
== END ==
PROVIDERS: PCP Internal Medicine; Referring Provider Internal Medicine; Visit Provider Internal Medicine
DX: I10 Essential (primary) hypertension (principal); E11.9 Type 2 diabetes mellitus without complications; D64.9 Anemia, unspecified
CPT/HCPCS: 36415; 80053; 83036; 85025

== ENCOUNTER → 2025-01-22 14:32 | Outpatient (CLI) | payer OTHER, SELFPAY ==
[2024-10-05 15:55] VITALS: BMI 31.1
== END ==
PROVIDERS: Family Provider Internal Medicine; PCP Internal Medicine; Referring Provider Internal Medicine; Visit Provider Surgery
DX: E11.621 Type 2 diabetes mellitus with foot ulcer (principal); L97.412 Non-pressure chronic ulcer of right heel and midfoot with fat layer exposed; T87.89 Other complications of amputation stump; E11.40 Type 2 diabetes mellitus with diabetic neuropathy, unspecified; E11.51 Type 2 diabetes mellitus with diabetic peripheral angiopathy without gangrene; I10 Essential (primary) hypertension; D64.9 Anemia, unspecified; E66.9 Obesity, unspecified; Z68.31 Body mass index [BMI] 31.0-31.9, adult; Z87.891 Personal history of nicotine dependence
CPT/HCPCS: 11042

== ENCOUNTER → 2025-01-29 09:42 | Outpatient (CLI) | payer OTHER, SELFPAY ==
[2024-10-05 15:55] VITALS: BMI 31.1
== END ==
LOC: WC 09:44
PROVIDERS: Family Provider Internal Medicine; PCP Internal Medicine; Referring Provider Internal Medicine; Visit Provider Surgery
DX: E11.621 Type 2 diabetes mellitus with foot ulcer (principal); L97.412 Non-pressure chronic ulcer of right heel and midfoot with fat layer exposed; T87.89 Other complications of amputation stump; Z89.431 Acquired absence of right foot; E11.40 Type 2 diabetes mellitus with diabetic neuropathy, unspecified; E11.51 Type 2 diabetes mellitus with diabetic peripheral angiopathy without gangrene; I10 Essential (primary) hypertension; D64.9 Anemia, unspecified; E66.9 Obesity, unspecified; Z68.31 Body mass index [BMI] 31.0-31.9, adult; Z87.891 Personal history of nicotine dependence
CPT/HCPCS: 11042

== ENCOUNTER → 2025-02-05 10:15 | Outpatient (CLI) | payer OTHER, SELFPAY ==
[2024-10-05 15:55] VITALS: BMI 31.1
== END ==
LOC: WC 10:17
PROVIDERS: Family Provider Internal Medicine; PCP Internal Medicine; Referring Provider Internal Medicine; Visit Provider Surgery
DX: E11.621 Type 2 diabetes mellitus with foot ulcer (principal); L97.512 Non-pressure chronic ulcer of other part of right foot with fat layer exposed; E11.42 Type 2 diabetes mellitus with diabetic polyneuropathy; I73.9 Peripheral vascular disease, unspecified; R23.4 Changes in skin texture
CPT/HCPCS: 11042; 97597

== ENCOUNTER → 2025-02-11 10:26 | Outpatient (CLI) | payer OTHER, SELFPAY ==
[2024-10-05 15:55] VITALS: BMI 31.1
== END ==
LOC: WC 10:27
PROVIDERS: Family Provider Internal Medicine; PCP Internal Medicine; Referring Provider Internal Medicine; Visit Provider Surgery
DX: E11.621 Type 2 diabetes mellitus with foot ulcer (principal); L97.412 Non-pressure chronic ulcer of right heel and midfoot with fat layer exposed; E11.42 Type 2 diabetes mellitus with diabetic polyneuropathy; R60.0 Localized edema; T87.89 Other complications of amputation stump; Z89.431 Acquired absence of right foot; E11.51 Type 2 diabetes mellitus with diabetic peripheral angiopathy without gangrene; E66.9 Obesity, unspecified; Z68.31 Body mass index [BMI] 31.0-31.9, adult; D64.9 Anemia, unspecified; I10 Essential (primary) hypertension; Z87.891 Personal history of nicotine dependence; Z96.698 Presence of other orthopedic joint implants
CPT/HCPCS: 11042; 99213

== ENCOUNTER → 2025-02-14 13:41 | Outpatient (CLI) | payer OTHER, SELFPAY ==
[2024-10-05 15:55] VITALS: BMI 31.1
--- NOTE | 2025-02-14 13:43 | DI.MRI.S_ITS ---
PROCEDURE: MR FOOT RT WO/W CON INDICATIONS: non-healing ulcer on right distal foot, post trans met amp TECHNIQUE: Multiphasic, multisequence MRI of the forefoot was performed, before and after intravenous contrast administration. COMPARISON: [facility], CR, XR FOOT RT MIN 3V, 01/14/2025, 11:15. FINDINGS: Image quality: Diagnostic. Bones and joints: Postsurgical changes from transmetatarsal amputation of the forefoot. Osseous edema and decreased intrinsic T1-weighted signal are seen in the proximal 5th metatarsal with associated postcontrast enhancement, most notably at the 5th metatarsal base. Mild osseous edema is seen within the calcaneus without abnormal T1- weighted signal. The remaining osseous structures demonstrate normal overall signal. Mild degeneration and subchondral cystic changes in the tarsometatarsal joints. No osteochondral lesion in the talar dome. Postsurgical changes are seen at the distal tibia and fibula with associated metal artifact that obscures adjacent structures. Soft tissues: Mild subcutaneous edema and enhancement at the lateral forefoot. No drainable fluid collection is seen. There is fatty infiltration of the visualized musculature compatible with chronic denervation changes. No acute ligament or tendon tearing is seen. Lisfranc ligament remains intact. IMPRESSION: 1. Postsurgical changes from transmetatarsal amputation of the forefoot. Postsurgical changes partially included in the distal tibia and fibula. 2. Osseous edema and enhancement as well as abnormal T1-weighted signal in the proximal 5th metatarsal is suspicious for osteomyelitis. Mild edema in the cuboid without T1 signal abnormality is less specific in may be reactive. 3. Mild subcutaneous edema and enhancement at the lateral midfoot. No abscess is seen. 4. Fatty infiltration of the foot musculature compatible with chronic denervation changes. Approved by: Randy Chery M.D. on 02/15/2025 at 12:25
== END ==
LOC: MRI 13:43
PROVIDERS: Family Provider Internal Medicine; PCP Internal Medicine; Referring Provider Surgery; Visit Provider Surgery
DX: E11.621 Type 2 diabetes mellitus with foot ulcer (principal); Z89.431 Acquired absence of right foot; R60.0 Localized edema
CPT/HCPCS: 73720; A9579

== ENCOUNTER → 2025-02-18 11:03 | Outpatient (CLI) | payer OTHER, SELFPAY ==
[2024-10-05 15:55] VITALS: BMI 31.1
== END ==
LOC: WC 11:04
PROVIDERS: Family Provider Internal Medicine; PCP Internal Medicine; Referring Provider Internal Medicine; Visit Provider Surgery
DX: E11.621 Type 2 diabetes mellitus with foot ulcer (principal); L97.512 Non-pressure chronic ulcer of other part of right foot with fat layer exposed; E11.42 Type 2 diabetes mellitus with diabetic polyneuropathy; I73.9 Peripheral vascular disease, unspecified
CPT/HCPCS: 11042

== ENCOUNTER → 2025-02-26 15:46 | Outpatient (CLI) | payer OTHER, SELFPAY ==
[2024-10-05 15:55] VITALS: BMI 31.1
== END ==
LOC: WC 15:47
PROVIDERS: Family Provider Internal Medicine; PCP Internal Medicine; Referring Provider Internal Medicine; Visit Provider Surgery
DX: E11.40 Type 2 diabetes mellitus with diabetic neuropathy, unspecified (principal); I10 Essential (primary) hypertension; D64.9 Anemia, unspecified; Z89.431 Acquired absence of right foot; E66.9 Obesity, unspecified; Z68.31 Body mass index [BMI] 31.0-31.9, adult; Z87.891 Personal history of nicotine dependence
CPT/HCPCS: 99213

== ENCOUNTER → 2025-03-05 15:19 | Outpatient (CLI) | payer OTHER, SELFPAY ==
[2024-10-05 15:55] VITALS: BMI 31.1
== END ==
LOC: WC 15:20
PROVIDERS: Family Provider Internal Medicine; PCP Internal Medicine; Referring Provider Internal Medicine; Visit Provider Surgery
DX: E11.621 Type 2 diabetes mellitus with foot ulcer (principal); L97.512 Non-pressure chronic ulcer of other part of right foot with fat layer exposed; E11.42 Type 2 diabetes mellitus with diabetic polyneuropathy; I73.9 Peripheral vascular disease, unspecified
CPT/HCPCS: 97597

== ENCOUNTER → 2025-03-12 14:38 | Outpatient (CLI) | payer OTHER, SELFPAY ==
[2024-10-05 15:55] VITALS: BMI 31.1
== END ==
PROVIDERS: Family Provider Internal Medicine; PCP Internal Medicine; Referring Provider Internal Medicine; Visit Provider Surgery
DX: E11.621 Type 2 diabetes mellitus with foot ulcer (principal); L97.512 Non-pressure chronic ulcer of other part of right foot with fat layer exposed; E11.42 Type 2 diabetes mellitus with diabetic polyneuropathy; I73.9 Peripheral vascular disease, unspecified
CPT/HCPCS: 97597; 99213

== ENCOUNTER → 2025-03-15 08:42 | Outpatient (CLI) | payer OTHER, SELFPAY ==
[2024-10-05 15:55] VITALS: BMI 31.1
[2025-03-15 09:37] LABS: Add Manual Diff / Slide Review NO; Hematocrit 36.0 % (36-46); Hemoglobin 12.5 g/dL (12.0-16.0); Lymphocytes Absolute Auto 1600 /uL (1100-4500); Mean Corpuscular HGB Conc 34.8 % (30-36); Mean Corpuscular Hemoglobin 32.7 PG (26-34); Mean Corpuscular Volume 94.0 fL (80-100); Platelet Count 223 X10^3/uL (150-400)
[2025-03-15 09:55] LABS: Alanine Aminotransferase 21 IU/L (<35); Albumin 4.0 g/dL (3.5-5.0); Albumin Globulin Ratio 1.4 (1.0-2.8); Alkaline Phosphatase 98 U/L (38-126); Blood Urea Nitrogen 25 mg/dL (7-17); Calcium 8.8 mg/dL (8.4-10.2); Carbon Dioxide 25 mmol/L (22-32); Chloride 106 mmol/L (98-107); Cholesterol 224 mg/dL (140-199); Estimated Glomerular Filt Rate 44 mL/min (>60); Globulin 2.8 g/dL (1.7-4.1); Glucose 245 mg/dL (70-99); HDL Cholesterol 62 mg/dL (40-60); HEMOLYSIS < 15 (0-50); Hemoglobin A1C% w Est Avg Glu 7.0 % (4.0-6.0); Potassium 4.5 mmol/L (3.4-5.1); Sodium 140 mmol/L (137-145); Total Protein 6.8 g/dL (6.3-8.2); Triglycerides 264 mg/dL (35-150)
== END ==
PROVIDERS: Family Provider Internal Medicine; PCP Internal Medicine; Referring Provider Internal Medicine; Visit Provider Internal Medicine
DX: I10 Essential (primary) hypertension (principal); E11.9 Type 2 diabetes mellitus without complications; D64.9 Anemia, unspecified; D63.8 Anemia in other chronic diseases classified elsewhere
CPT/HCPCS: 36415; 80053; 80061; 83036; 85025

== ENCOUNTER → 2025-03-19 15:09 | Outpatient (CLI) | payer OTHER, SELFPAY ==
[2024-10-05 15:55] VITALS: BMI 31.1
== END ==
LOC: WC 15:21
PROVIDERS: Family Provider Internal Medicine; PCP Internal Medicine; Referring Provider Internal Medicine; Visit Provider Surgery
DX: E11.42 Type 2 diabetes mellitus with diabetic polyneuropathy (principal); E11.51 Type 2 diabetes mellitus with diabetic peripheral angiopathy without gangrene; E66.9 Obesity, unspecified; Z68.31 Body mass index [BMI] 31.0-31.9, adult; D64.9 Anemia, unspecified; I10 Essential (primary) hypertension; Z89.431 Acquired absence of right foot; Z87.891 Personal history of nicotine dependence; Z86.31 Personal history of diabetic foot ulcer
CPT/HCPCS: 99212; 99213